=== PATIENT | male | born 1955 | race Caucasian/White ===

== ENCOUNTER 2018-02-16 11:27 | Observation (INO) ==
[2018-02-16] MEDS ORDERED: Aspirin 325 MG Tablet PO ONE (11:54)
[2018-02-16] MEDS ORDERED: MethylPREDNISolone Sod Succinate Inj 125 MG/2 ML Vial IV.PUSH ONE (11:54)
[2018-02-16] MEDS ORDERED: Sod Chloride 0.9% Inj 1,000 ML IV.SIG SCH (12:15)
--- NOTE | 2018-02-16 12:20 | XR ---
EXAM DATE: 02/16/2018 12:15 PM EDT AGE/SEX: 62 years / Male INDICATIONS: Chest pain, short of breath. CLINICAL DATA: This is the patient's initial encounter. Patient reports that signs and symptoms have been present for 2 months and indicates a pain score of 7/10. MEDICAL/SURGICAL HISTORY: Chronic obstructive pulmonary disease. heart attack Coronary artery stent. COMPARISON: [facility] – [place], CHEST SINGLE AP, 07/27/2016. . FINDINGS: A single AP view of the chest demonstrates the lungs to be symmetrically aerated without evidence of mass, infiltrate or effusion. The cardiomediastinal contours are unremarkable. Osseous structures a re intact. CONCLUSION: Negative examination. Electronically signed by: Yaya Nelson MD 02/16/2018 12:19 PM EDT
[2018-02-16] MEDS ORDERED: Morphine Inj 4 MG/ML Vial IV.PUSH ONE (12:22)
[2018-02-16 12:23] LABS: Baso % (Auto) 0.8 % (0.0-2.0); Eos # (Auto) 0.1 th/mm3 (0.0-0.4); Eos % (Auto) 1.9 % (0.0-4.0); Hematocrit 31.5 % (39.0-51.0); Hemoglobin 10.1 gm/dL (13.0-17.0); Lymph # (Auto) 0.8 th/mm3 (1.0-4.8); Lymph % (Auto) 15.4 % (9.0-44.0); Mean Corpuscular HGB Conc 32.2 % (32.0-36.0); Mean Corpuscular Hemoglobin 26.5 pg (27.0-34.0); Mean Corpuscular Volume 82.3 fL (80.0-100.0); Mono # (Auto) 0.9 th/mm3 (0.0-0.9); Mono % (Auto) 16.2 % (0.0-8.0); Neut # (Auto) 3.6 th/mm3 (1.8-7.7); Neut % (Auto) 65.7 % (16.0-70.0); Platelet Count 267 th/mm3 (150-450); Red Blood Count 3.82 mil/mm3 (4.50-5.90); Red Cell Distribution Width 19.3 % (11.6-17.2); White Blood Count 5.5 th/mm3 (4.0-11.0)
[2018-02-16 12:33] LABS: Activated Partial Thrombo Time 24.2 sec (24.3-30.1); Prothrombin Time 10.6 sec (9.8-11.6)
--- NOTE | 2018-02-16 12:44 | ED ---
HPI General Chief Complaint: Shortness of Breath/Dyspnea Stated Complaint: SOB Time Seen by Provider: 02/16/18 11:32 Source: patient, EMS and RN notes reviewed Mode of arrival: EMS Limitations: no limitations History of Present Illness Patient is a 62-year-old male that presents for the evaluation of shortness of breath, nausea, and vomiting. The patient had a difficult time recalling when exactly the shortness of breath began and states that it has been an ongoing problem. The patient states that the nausea and vomiting began last week and he has been unable to keep any food or liquid down. The patient reports abdominal pain that he rates the pain a 9/10 on a pain scale. The patient also states that he has a chronic history of pain in his penis upon urination that he rates the pain a 9/10 on a pain scale. He denies any blood in the urine. The patient states that he is currently homeless and has not been able to take any of his medications for about 2-3 months. The patient states that he does have some mild chest pain which has been consistent since his myocardial infarction and stent placement 2 months ago. The patient reports no diarrhea or constipation. He does report some dizziness and headache. Related Data Home Medications Medication Instructions Recorded Confirmed Unable to Obtain Home Meds 02/16/18 02/16/18 Allergies Allergy/AdvReac Type Severity Reaction Status Date / Time penicillin G Allergy Unknown Unverified 01/11/17 13:14 Review of Systems ROS: all other systems reviewed are negative [facility] Medical History Medical History COPD (chronic obstructive pulmonary disease) (Acute) Recent heart attack (Acute) Surgical History Surgical History Stented coronary artery (Acute) Social History Social History Second Hand Smoke Exposure: Yes Smoking Status: Current every day smoker Tobacco Type: Cigarettes How Often Do You Have a Drink Containing Alcohol: Never Recent Travel in [facility] within the Last 8 Weeks: No Recent Out of Country Travel within the Last 8 Weeks: No Immunization History Tetanus Immunization: <5 Years Exam Narrative Exam Narrative: GENERAL: Well appearing. SKIN: Focused skin assessment warm/dry. multiple bruises on arms and legs, most of them appear old. HEAD: Atraumatic. Normocephalic. EYES: Pupils equal and round. No scleral icterus. No injection or drainage. ENT: No nasal bleeding or discharge. Mucous membranes pink and moist. Tongue is midline. No uvula deviation. NECK: Trachea midline. No JVD. CARDIOVASCULAR: Regular rate and rhythm. No murmur appreciated. RESPIRATORY: No accessory muscle use. Clear to auscultation. Breath sounds equal bilaterally. GASTROINTESTINAL: Abdomen soft, non-tender, nondistended. Hepatic and splenic margins not palpable. MUSCULOSKELETAL: No obvious deformities. No clubbing. No cyanosis. No edema. Full range of motion of the upper and lower extremities bilaterally. 2+ pulses bilaterally. NEUROLOGICAL: Awake and alert. No obvious cranial nerve deficits. Motor grossly within normal limits. Normal speech. PSYCHIATRIC: Appropriate mood and affect; insight and judgment normal. Course Initial Documented Vital Signs Temperature 98.8 F 02/16/18 11:32 Pulse Rate 79 02/16/18 11:32 Respiratory Rate 17 02/16/18 11:32 Blood Pressure 147/71 H 02/16/18 11:32 Pulse Oximetry 98 02/16/18 11:32 Last Documented Vital Signs Temperature 98.8 F 02/16/18 11:32 Pulse Rate 70 02/16/18 12:31 Respiratory Rate 20 02/16/18 12:31 Blood Pressure 147/71 H 02/16/18 11:32 Pulse Oximetry 98 02/16/18 11:32 Medical Decision Making NAE Attestation NAE supervised visit: Yes Attestation: I, Dr. Uribe, have reviewed the advance practice practitioner's documentation and am in agreement, met with the patient face to face, made the diagnosis, and the medical decision making was done by me. *My assessment and Findings: Patient seen and examined by me in addition to Abran Berman PA-C, this is a 62-year-old homeless male who presents emergency department multiple complaints chief of which was chest pain. He has a recent history of stenting, he is not taking any of his post stenting medications. No definitive cause of his pain is yet been identified. Given the recent stenting in his chest pain I think is reasonable to hold him overnight for evaluation the chest pain center. I do get a suspicion of secondary gains in this patient. MDM Narrative Medical decision making narrative: 62-year-old male the presents to the ED for presents to the ED for evaluation of shortness of breath and other multiple complaints. Labs and imaging were ordered. Patient was given IV medications. Labs and imaging showed no sign of acute disease alert and what appears to be COPD findings on the chest x-ray. Patient still on some discomfort especially on the chest and abdomen. The abdomen appears to be chronic. Patient does however have a history of having a stent to his heart and takes no medication since having the stent placed. My attending Dr. Uribe himself evaluated the patient and recommends admission to chest pain center to rule out any sign of cardiac disease. Patient understands that regards to the pain on the arms and legs we might not be able to diagnose and patient will have to follow-up with her primary care doctor outpatient. He agrees and understands this plan. He understands that we are working him up for angina and cardiac disease. She agrees and understands this plan. He agrees with admission. Patient was admitted to chest pain center by me. Medical Screen Exam Complete: Yes Emergency Medical Condition: Yes Differential Diagnosis Differential Diagnosis: COPD exacerbation versus ACS versus chest pain versus typical chest pain versus pancreatitis versus nausea and vomiting versus homelessness Medical Records Medical records reviewed: Yes I reviewed the patient's medical records. Lab Data Lab results reviewed: Yes I reviewed the patient's lab results. Lab results narrative: troponin negative, CKMB negative Result diagrams: 02/16/18 12:05 02/16/18 12:05 Lab Results 02/16/18 02/16/18 02/16/18 Range/Units 12:05 12:05 12:05 WBC 5.5 (4.0-11.0) th/mm3 RBC 3.82 L (4.50-5.90) mil/mm3 Hgb 10.1 L (13.0-17.0) gm/dL Hct 31.5 L (39.0-51.0) % MCV 82.3 (80.0-100.0) fL MCH 26.5 L (27.0-34.0) pg MCHC 32.2 (32.0-36.0) % RDW 19.3 H (11.6-17.2) % Plt Count 267 (150-450) th/mm3 MPV 7.0 (7.0-11.0) fL Neut % (Auto) 65.7 (16.0-70.0) % Lymph % (Auto) 15.4 (9.0-44.0) % [place] % (Auto) 16.2 H (0.0-8.0) % Eos % (Auto) 1.9 (0.0-4.0) % Baso % (Auto) 0.8 (0.0-2.0) % Neut # (Auto) 3.6 (1.8-7.7) th/mm3 Lymph # (Auto) 0.8 L (1.0-4.8) th/mm3 [place] # (Auto) 0.9 (0.0-0.9) th/mm3 Eos # (Auto) 0.1 (0.0-0.4) th/mm3 Baso # (Auto) 0.0 (0.0-0.2) th/mm3 WBC Differential . Differential Comment Auto diff final PT 10.6 (9.8-11.6) sec INR 1.0 Ratio APTT 24.2 L (24.3-30.1) sec Sodium 138 (136-145) meq/L Potassium 3.8 (3.5-5.1) meq/L Chloride 102 (98-107) meq/L Carbon Dioxide 27.0 (21.0-32.0) meq/L Anion Gap 9 (5-15) meq/L BUN 10 (7-18) mg/dL Creatinine 0.62 (0.60-1.30) mg/dL Estimated GFR Greater than 89 (>89) mL/min Random Glucose 88 (74-106) mg/dL Calcium 8.6 (8.5-10.1) mg/dL Total Bilirubin (0.2-1.0) mg/dL Direct Bilirubin (0.0-0.2) mg/dL Indirect Bilirubin (0.0-0.8) mg/dL AST (15-37) U/L ALT (12-78) U/L Alkaline Phosphatase (45-117) U/L Total Creatine Kinase 28 L (39-308) U/L Troponin I Less than 0.02 L (0.02-0.05) ng/mL Total Protein (6.4-8.2) g/dL Albumin (3.4-5.0) g/dL Lipase (73-393) U/L 02/16/18 Range/Units 12:05 WBC (4.0-11.0) th/mm3 RBC (4.50-5.90) mil/mm3 Hgb (13.0-17.0) gm/dL Hct (39.0-51.0) % MCV (80.0-100.0) fL MCH (27.0-34.0) pg MCHC (32.0-36.0) % RDW (11.6-17.2) % Plt Count (150-450) th/mm3 MPV (7.0-11.0) fL Neut % (Auto) (16.0-70.0) % Lymph % (Auto) (9.0-44.0) % [place] % (Auto) (0.0-8.0) % Eos % (Auto) (0.0-4.0) % Baso % (Auto) (0.0-2.0) % Neut # (Auto) (1.8-7.7) th/mm3 Lymph # (Auto) (1.0-4.8) th/mm3 [place] # (Auto) (0.0-0.9) th/mm3 Eos # (Auto) (0.0-0.4) th/mm3 Baso # (Auto) (0.0-0.2) th/mm3 WBC Differential Differential Comment PT (9.8-11.6) sec INR Ratio APTT (24.3-30.1) sec Sodium (136-145) meq/L Potassium (3.5-5.1) meq/L Chloride (98-107) meq/L Carbon Dioxide (21.0-32.0) meq/L Anion Gap (5-15) meq/L BUN (7-18) mg/dL Creatinine (0.60-1.30) mg/dL Estimated GFR (>89) mL/min Random Glucose (74-106) mg/dL Calcium (8.5-10.1) mg/dL Total Bilirubin 0.9 (0.2-1.0) mg/dL Direct Bilirubin 0.2 (0.0-0.2) mg/dL Indirect Bilirubin 0.7 (0.0-0.8) mg/dL AST 12 L (15-37) U/L ALT 13 (12-78) U/L Alkaline Phosphatase 88 (45-117) U/L Total Creatine Kinase (39-308) U/L Troponin I (0.02-0.05) ng/mL Total Protein 6.3 L (6.4-8.2) g/dL Albumin 2.6 L (3.4-5.0) g/dL Lipase 90 (73-393) U/L Imaging Data Attestation: I personally reviewed and interpreted this imaging study as follows : Radiologist's impression: Chest X-Ray 02/16/18 11:54 CONCLUSION: Negative examination. ECG Data EKG Prior to Arrival: No Attestation: I personally reviewed and interpreted this ECG as follows: Interpretation: EKG shows sinus rhythm with no sign of acute ischemia or arrhythmia. Ventricular rate of 72, MN interval of 158 ms. Read by me and attending. Discharge Plan Discharge Disposition Patient Disposition: 30 Still Patient Discharge Details Diagnosis: Chest pain Physicians Team ED Provider: Yaya Uribe ED Midlevel Provider: Abran Berman Primary Care Provider: Primary Care Mary Salcedo Rxs /Orders / Referrals /Forms Prescriptions: No Action Unable to Obtain Home Meds RF: 0 Discharge Interventions Interventions: Vital Signs Last Done: 02/16/18 11:40 Status ED Status: With Doctor
[2018-02-16 13:01] LABS: Anion Gap 9 meq/L (5-15); Blood Urea Nitrogen 10 mg/dL (7-18); Calcium 8.6 mg/dL (8.5-10.1); Chloride 102 meq/L (98-107); Glomerular Filtration Rate Greater Than 89 mL/min (>89); Glucose,Random 88 mg/dL (74-106); Potassium 3.8 meq/L (3.5-5.1); Sodium 138 meq/L (136-145)
[2018-02-16 13:07] LABS: Creatine Kinase 28 U/L (39-308)
[2018-02-16 13:38] LABS: Albumin 2.6 g/dL (3.4-5.0)
[2018-02-16 13:40] LABS: Total Protein 6.3 g/dL (6.4-8.2)
[2018-02-16 16:23] LABS: Creatine Kinase 30 U/L (39-308)
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
[2018-02-16 17:12] LABS: Bilirubin,Urine Negative (Negative); Clarity,Urine Clear (Clear); Color,Urine Yellow (Yellw/Straw); Glucose,Urine (UA) Negative (Negative); Leukocyte Esterase,Urine Negative (Negative); Mucus,Urine Few /lpf (Occasional); Nitrite,Urine Negative (Negative); Specific Gravity,Urine 1.009 (1.002-1.035)
[2018-02-16 19:54] VITALS: RESP 16
[2018-02-16 20:01] LABS: Creatine Kinase 30 U/L (39-308)
[2018-02-17 04:10] VITALS: TEMP 97.8; O2SAT 96
[2018-02-17 08:05] VITALS: BP 152/67
[2018-02-17 08:13] VITALS: PULSE 72
[2018-02-17] MEDS ORDERED: Aspirin 325 MG Tablet PO SCH (09:00)
[2018-02-17] MEDS ORDERED: Regadenoson Inj 0.4 MG/5 ML Syringe IV.PUSH ONE (12:24)
--- NOTE | 2018-02-17 14:45 | NM ---
EXAM DATE: 02/17/2018 1:54 PM EDT AGE/SEX: 62 years / Male INDICATIONS:Angina. Coronary artery disease Chest pain. CLINICAL DATA: This is the patient's initial encounter. Patient reports that signs and symptoms have been present for 2 days and indicates a pain score of 3/10. MEDICAL/SURGICAL HISTORY: Myocardial infarction. Hypertension. Coronary artery stent. COMPARISON: No prior exams available for comparison. DOSE: 8.2 mCi Tc 99m Myoview at rest 26.1 mCi [id number] at stress 0.4 mg Lexiscan STRESS SYMPTOMS: None noted. EJECTION FRACTION: 50 % TECHNIQUE: The patient underwent pharmacologic stress with infusion of prescribed dose. Continuous ECG tracing was monitored during stress. Gated SPECT imaging was performed after stress and conventi onal SPECT imaging was performed at rest. The examination was performed on a SPECT/CT scanner, both attenuation and non-corrected datasets were reviewed. FINDINGS: Best perfused myocardium is the anterior lateral wall. There is no redistribution to suggest ischemia . There is dilatation of ventricular cavity with ejection fraction of 50%. RISK CATEGORY: Low (<1% Annual Motality Rate) CONCLUSION: 1. Negative for stress-induced ischemia. Patient does have a depressed ejection fraction of 50%. Cor relation suggested. Electronically signed by: Doug Barros MD 02/17/2018 2:43 PM EDT
--- NOTE | 2018-02-18 10:26 | TR ---
Date Performed: 02/17/2018 Time Performed: 12:26:52 DOCTOR: Herve Bradley DRUG LIST: CLINICAL HISTORY: ANGINA REASON FOR TEST: Angina REASON FOR ENDING: OBSERVATION: CONCLUSION: Lexiscan stress test was performed under standard four minute protocol. Radionuclide was injected one minute prior to ending the test. No electrocardiographic abormalities were present to suggest ischemia. Nuclear imaging and interpretation are pending. COMMENTS:
--- NOTE | 2018-02-18 10:36 | ECG ---
Date Performed: 02/16/2018 Time Performed: 18:13:06 PTAGE: 62 years EKG: Sinus rhythm NORMAL ECG PREVIOUS TRACING : 02/16/2018 15.23 DOCTOR: Herve Bradley Interpretating Date/Time 02/18/2018 10:34:19
--- NOTE | 2018-02-18 10:36 | ECG ---
Date Performed: 02/16/2018 Time Performed: 15:23:46 PTAGE: 62 years EKG: Sinus rhythm NORMAL ECG PREVIOUS TRACING : 02/16/2018 12.02 DOCTOR: Herve Bradley Interpretating Date/Time 02/18/2018 10:34:35
--- NOTE | 2018-02-18 10:38 | ECG ---
Date Performed: 02/16/2018 Time Performed: 12:02:10 PTAGE: 62 years EKG: Sinus rhythm NORMAL ECG PREVIOUS TRACING : 07/27/2016 05.46 DOCTOR: Herve Bradley Interpretating Date/Time 02/18/2018 10:35:22
== END 2018-02-17 16:53 | disposition home or self-care (01) ==
LOC: NEPC 11:27 → NEDA 11:27 → NEPGCP 16:10
PROVIDERS: ADMIT Internal Medicine Cardiovascular Disease; ATTEND Internal Medicine Cardiovascular Disease
DX: R42 Dizziness and giddiness; F17.210 Nicotine dependence, cigarettes, uncomplicated; R51 Headache; Z91.14 Patient's other noncompliance with medication regimen; Z82.49 Family history of ischemic heart disease and other diseases of the circulatory system; R06.02 Shortness of breath; Z95.5 Presence of coronary angioplasty implant and graft; J44.9 Chronic obstructive pulmonary disease, unspecified; R11.2 Nausea with vomiting, unspecified; Z59.0 Homelessness; I25.2 Old myocardial infarction; R07.9 Chest pain, unspecified; R10.9 Unspecified abdominal pain; I25.10 Atherosclerotic heart disease of native coronary artery without angina pectoris

== ENCOUNTER 2018-02-19 03:21 | Inpatient (IN) ==
--- NOTE | 2018-02-19 03:35 | ED ---
HPI General Chief Complaint: Shortness of Breath/Dyspnea Stated Complaint: SOB Time Seen by Provider: 02/19/18 03:32 Source: patient Mode of arrival: ambulatory Limitations: no limitations History of Present Illness complaints of shortness of breath, times the last 2 days. Patient has a past medical history significant for COPD. Patient continues to be an active smoker. 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 Today the patient is mostly complaining of his wheezing and shortness of breath... He denies any productive cough... Apparently the patient had a stent done in [facility] back at the beginning of 2018. Patient also has a history for recent heart attack status post coronary artery stented, active smoker, Related Data Previous Rx's Medication Instructions Recorded guaifenesin [Mucinex] 600 mg PO BID tab 02/22/18 budesonide-formoterol [Symbicort] 2 puff INH BID #1 g 02/28/18 doxycycline hyclate 100 mg PO Q12HR #30 cap 02/28/18 ferrous sulfate [FeroSul] 325 mg PO BID@1200,1700 #60 tab 02/28/18 fluphenazine HCl 5 mg PO BID #60 tab 02/28/18 pantoprazole [Protonix] 40 mg PO BID #60 ea 02/28/18 prednisone 20 mg PO DAILY #60 tab 02/28/18 Allergies Allergy/AdvReac Type Severity Reaction Status Date / Time penicillin G Allergy Intermediate Rash Verified 02/19/18 03:40 Review of Systems ROS: all other systems reviewed are negative PMFSH History History Provided By: Patient Medical History Medical History Asthma (Acute) COPD (chronic obstructive pulmonary disease) (Acute) Recent heart attack (Acute) Surgical History Surgical History Stented coronary artery (Acute) Family History Family History Other No pertinent family history Social History Social History Substance History: Past History Second Hand Smoke Exposure: No Smoking Status: Former smoker Tobacco Type: Cigarettes Packs Per Day: 1 Cigarettes Per Day: 20.0 How Often Do You Have a Drink Containing Alcohol: Never Hx Recent Travel: Yes ([facility]) Exam Narrative Exam Narrative: GENERAL: Well-nourished, well-developed patient in no apparent distress. SKIN: Warm and dry. HEAD: Atraumatic. Normocephalic. EYES: Pupils equal and round. No scleral icterus. No injection or drainage. ENT: No nasal bleeding or discharge. Mucous membranes pink and moist. NECK: Trachea midline. No JVD. CARDIOVASCULAR: Regular rate and rhythm. no rubs or gallops RESPIRATORY: No accessory muscle use. Clear to auscultation. Breath sounds equal bilaterally. GASTROINTESTINAL: Abdomen soft, non-tender, nondistended. No rebound or guarding MUSCULOSKELETAL: Extremities without clubbing, cyanosis, or edema. No obvious deformities. NEUROLOGICAL: Awake and alert. No obvious cranial nerve deficits. Motor grossly within normal limits. Five out of 5 muscle strength in the arms and legs. Normal speech. PSYCHIATRIC: Appropriate mood and affect; insight and judgment normal. Course Initial Documented Vital Signs Temperature 99.1 F 02/19/18 03:30 Pulse Rate 109 H 02/19/18 03:30 Respiratory Rate 18 02/19/18 03:30 Blood Pressure 132/76 02/19/18 03:30 Pulse Oximetry 96 02/19/18 03:30 Last Documented Vital Signs Temperature 97.6 F 02/22/18 16:00 Pulse Rate 76 02/22/18 16:00 Respiratory Rate 17 02/22/18 16:00 Blood Pressure 139/69 02/22/18 16:00 Pulse Oximetry 97 02/22/18 16:00 Medical Decision Making [facility] Narrative Medical decision making narrative: CBC showed some mild anemia of 10.7/33, no leukocytosis, no evidence of any left shift, normal platelet count. Coagulation profile within normal limits Set of cardiac enzymes negative Normal kidney liver and pancreatic functions CT chest is negative for any pulmonary embolus, or pericardial effusion. However the patient's chest CT did show an ill-defined thickening seen in the distal esophagus associated with lymphadenopathy adjacent to the GE junction. patient will be admitted for further evaluation and care Medical Screen Exam Complete: Yes Emergency Medical Condition: Yes Differential Diagnosis Differential Diagnosis: COPD versus pneumonia versus PE versus STEMI Medical Records Medical records reviewed: Yes I reviewed the patient's medical records. Patient was seen on February 16, evaluated for COPD exacerbation and admitted for chest pain center. He was ruled out 3 negative enzymes... Patient also had a Lexiscan stress test which was negative for any evidence suggesting ischemia. Lab Data Result diagrams: 02/22/18 04:11 02/22/18 04:11 Lab Results 02/19/18 02/19/18 02/19/18 Range/Units 03:55 03:55 03:55 WBC 5.5 (4.0-11.0) th/mm3 RBC 4.00 L (4.50-5.90) mil/mm3 Hgb 10.7 L (13.0-17.0) gm/dL Hct 33.1 L (39.0-51.0) % MCV 82.8 (80.0-100.0) fL MCH 26.8 L (27.0-34.0) pg MCHC 32.3 (32.0-36.0) % RDW 19.6 H (11.6-17.2) % Plt Count 330 (150-450) th/mm3 MPV 7.0 (7.0-11.0) fL Neut % (Auto) 64.0 (16.0-70.0) % Lymph % (Auto) 18.5 (9.0-44.0) % Newton % (Auto) 14.1 H (0.0-8.0) % Eos % (Auto) 2.3 (0.0-4.0) % Baso % (Auto) 1.1 (0.0-2.0) % Neut # (Auto) 3.5 (1.8-7.7) th/mm3 Lymph # (Auto) 1.0 (1.0-4.8) th/mm3 Newton # (Auto) 0.8 (0.0-0.9) th/mm3 Eos # (Auto) 0.1 (0.0-0.4) th/mm3 Baso # (Auto) 0.1 (0.0-0.2) th/mm3 WBC Differential . Differential Comment Auto diff final Sodium 140 (136-145) meq/L Potassium 3.6 (3.5-5.1) meq/L Chloride 102 (98-107) meq/L Carbon Dioxide 27.4 (21.0-32.0) meq/L Anion Gap 11 (5-15) meq/L BUN 13 (7-18) mg/dL Creatinine 0.79 (0.60-1.30) mg/dL Estimated GFR Greater than 89 (>89) mL/min Random Glucose 93 (74-106) mg/dL Calcium 8.8 (8.5-10.1) mg/dL Total Bilirubin 0.5 (0.2-1.0) mg/dL AST 18 (15-37) U/L ALT 14 (12-78) U/L Alkaline Phosphatase 93 (45-117) U/L Troponin I Less than 0.02 L (0.02-0.05) ng/mL B-Natriuretic Peptide 33 (0-100) pg/mL Total Protein 7.1 D (6.4-8.2) g/dL Albumin 3.0 L (3.4-5.0) g/dL Tumor Marker AFP (0.5-8.0) ng/mL 02/20/18 02/20/18 02/21/18 Range/Units 04:30 04:30 06:40 WBC 3.9 L 4.6 (4.0-11.0) th/mm3 RBC 3.22 L 3.09 L (4.50-5.90) mil/mm3 Hgb 8.5 L D 8.3 L (13.0-17.0) gm/dL Hct 26.2 L 25.0 L (39.0-51.0) % MCV 81.4 80.9 (80.0-100.0) fL MCH 26.4 L 27.0 (27.0-34.0) pg MCHC 32.4 33.4 (32.0-36.0) % RDW 18.8 H 19.0 H (11.6-17.2) % Plt Count 293 301 (150-450) th/mm3 MPV 7.2 7.3 (7.0-11.0) fL Neut % (Auto) 63.3 61.4 (16.0-70.0) % Lymph % (Auto) 19.9 23.1 (9.0-44.0) % Newton % (Auto) 16.3 H 15.1 H (0.0-8.0) % Eos % (Auto) 0.1 0.1 (0.0-4.0) % Baso % (Auto) 0.4 0.3 (0.0-2.0) % Neut # (Auto) 2.5 2.8 (1.8-7.7) th/mm3 Lymph # (Auto) 0.8 L 1.1 (1.0-4.8) th/mm3 Newton # (Auto) 0.6 0.7 (0.0-0.9) th/mm3 Eos # (Auto) 0.0 0.0 (0.0-0.4) th/mm3 Baso # (Auto) 0.0 0.0 (0.0-0.2) th/mm3 WBC Differential . . Differential Comment Auto diff final Auto diff final Sodium 142 (136-145) meq/L Potassium 3.3 L (3.5-5.1) meq/L Chloride 108 H (98-107) meq/L Carbon Dioxide 25.1 (21.0-32.0) meq/L Anion Gap 9 (5-15) meq/L BUN 8 (7-18) mg/dL Creatinine 0.59 L (0.60-1.30) mg/dL Estimated GFR Greater than 89 (>89) mL/min Random Glucose 92 (74-106) mg/dL Calcium 8.5 (8.5-10.1) mg/dL Total Bilirubin 0.5 (0.2-1.0) mg/dL AST 13 L (15-37) U/L ALT 12 (12-78) U/L Alkaline Phosphatase 73 (45-117) U/L Troponin I (0.02-0.05) ng/mL B-Natriuretic Peptide (0-100) pg/mL Total Protein 5.8 L D (6.4-8.2) g/dL Albumin 2.6 L (3.4-5.0) g/dL Tumor Marker AFP (0.5-8.0) ng/mL 02/21/18 02/22/18 02/22/18 Range/Units 06:40 04:11 04:11 WBC 4.2 (4.0-11.0) th/mm3 RBC 3.13 L (4.50-5.90) mil/mm3 Hgb 8.4 L (13.0-17.0) gm/dL Hct 25.3 L (39.0-51.0) % MCV 80.9 (80.0-100.0) fL MCH 26.9 L (27.0-34.0) pg MCHC 33.3 (32.0-36.0) % RDW 19.0 H (11.6-17.2) % Plt Count 319 (150-450) th/mm3 MPV 7.4 (7.0-11.0) fL Neut % (Auto) 83.6 H (16.0-70.0) % Lymph % (Auto) 8.6 L (9.0-44.0) % Newton % (Auto) 7.6 (0.0-8.0) % Eos % (Auto) 0.1 (0.0-4.0) % Baso % (Auto) 0.1 (0.0-2.0) % Neut # (Auto) 3.5 (1.8-7.7) th/mm3 Lymph # (Auto) 0.4 L (1.0-4.8) th/mm3 Newton # (Auto) 0.3 (0.0-0.9) th/mm3 Eos # (Auto) 0.0 (0.0-0.4) th/mm3 Baso # (Auto) 0.0 (0.0-0.2) th/mm3 WBC Differential . Differential Comment Auto diff final Sodium 144 141 (136-145) meq/L Potassium 3.7 3.6 (3.5-5.1) meq/L Chloride 107 104 (98-107) meq/L Carbon Dioxide 26.9 25.6 (21.0-32.0) meq/L Anion Gap 10 11 (5-15) meq/L BUN 9 15 (7-18) mg/dL Creatinine 0.75 0.76 (0.60-1.30) mg/dL Estimated GFR Greater than 89 Greater than 89 (>89) mL/min Random Glucose 92 119 H (74-106) mg/dL Calcium 8.1 L 8.6 (8.5-10.1) mg/dL Total Bilirubin 0.4 0.5 (0.2-1.0) mg/dL AST 9 L 9 L (15-37) U/L ALT 12 13 (12-78) U/L Alkaline Phosphatase 71 76 (45-117) U/L Troponin I (0.02-0.05) ng/mL B-Natriuretic Peptide (0-100) pg/mL Total Protein 5.4 L 5.9 L (6.4-8.2) g/dL Albumin 2.4 L 2.7 L (3.4-5.0) g/dL Tumor Marker AFP (0.5-8.0) ng/mL 02/22/18 Range/Units 10:35 WBC (4.0-11.0) th/mm3 RBC (4.50-5.90) mil/mm3 Hgb (13.0-17.0) gm/dL Hct (39.0-51.0) % MCV (80.0-100.0) fL MCH (27.0-34.0) pg MCHC (32.0-36.0) % RDW (11.6-17.2) % Plt Count (150-450) th/mm3 MPV (7.0-11.0) fL Neut % (Auto) (16.0-70.0) % Lymph % (Auto) (9.0-44.0) % Newton % (Auto) (0.0-8.0) % Eos % (Auto) (0.0-4.0) % Baso % (Auto) (0.0-2.0) % Neut # (Auto) (1.8-7.7) th/mm3 Lymph # (Auto) (1.0-4.8) th/mm3 Newton # (Auto) (0.0-0.9) th/mm3 Eos # (Auto) (0.0-0.4) th/mm3 Baso # (Auto) (0.0-0.2) th/mm3 WBC Differential Differential Comment Sodium (136-145) meq/L Potassium (3.5-5.1) meq/L Chloride (98-107) meq/L Carbon Dioxide (21.0-32.0) meq/L Anion Gap (5-15) meq/L BUN (7-18) mg/dL Creatinine (0.60-1.30) mg/dL Estimated GFR (>89) mL/min Random Glucose (74-106) mg/dL Calcium (8.5-10.1) mg/dL Total Bilirubin (0.2-1.0) mg/dL AST (15-37) U/L ALT (12-78) U/L Alkaline Phosphatase (45-117) U/L Troponin I (0.02-0.05) ng/mL B-Natriuretic Peptide (0-100) pg/mL Total Protein (6.4-8.2) g/dL Albumin (3.4-5.0) g/dL Tumor Marker AFP 5.3 (0.5-8.0) ng/mL Imaging Data Radiologist's impression: Chest CTA 02/19/18 03:41 CONCLUSION: 1. No pulmonary embolus. 2. 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 3. Moderate emphysema. No pulmonary mass or infiltrate. Abdomen/Pelvis CT 02/20/18 00:00 CONCLUSION: 1. 1.6 cm mass anterior to the GE junction suspicious for an enlarged lymph node. 2. Possible concentric thickening of the GE junction; recommend direct characterization with endoscopy to evaluate for possible mass. 3. 4 mm low-density lesion in the dome of the liver is too small to further characterize. Discharge Plan Discharge Disposition Patient Disposition: 67 Disc To [facility] Discharge Condition Condition: Fair Discharge Order Discharge Orders: Discharge Order (Routine); Ordered 02/22/18 Ordered By: Rene Ernandez Discharge Details Anticipated Discharge Date: 02/22/18 Discharge Comment: per Psychiatri specialist. Diagnosis: COPD exacerbation, Esophageal mass Physicians Team ED Provider: Ovidio Zepeda Primary Care Provider: Primary Care Mary Salcdeo Attending Provider: Rene Ernandez Other Providers: Ernesto Gaona ; Carmine Cao Discharge Interventions Interventions: ED Discharge Assessment Last Done: 02/19/18 08:38 Status ED Status: Left Department Discharge Information Discharge Date/Time: 02/19/18 08:30
[2018-02-19] MEDS ORDERED: MethylPREDNISolone Sod Succinate Inj 125 MG/2 ML Vial IV.PUSH ONE (03:40)
[2018-02-19 04:01] LABS: Baso # (Auto) 0.1 th/mm3 (0.0-0.2); Baso % (Auto) 1.1 % (0.0-2.0); Eos # (Auto) 0.1 th/mm3 (0.0-0.4); Eos % (Auto) 2.3 % (0.0-4.0); Hematocrit 33.1 % (39.0-51.0); Hemoglobin 10.7 gm/dL (13.0-17.0); Lymph % (Auto) 18.5 % (9.0-44.0); Mean Corpuscular HGB Conc 32.3 % (32.0-36.0); Mean Corpuscular Hemoglobin 26.8 pg (27.0-34.0); Mean Corpuscular Volume 82.8 fL (80.0-100.0); Mono # (Auto) 0.8 th/mm3 (0.0-0.9); Mono % (Auto) 14.1 % (0.0-8.0); Neut # (Auto) 3.5 th/mm3 (1.8-7.7); Platelet Count 330 th/mm3 (150-450); Red Cell Distribution Width 19.6 % (11.6-17.2); White Blood Count 5.5 th/mm3 (4.0-11.0)
--- NOTE | 2018-02-19 04:24 | CT ---
EXAM DATE: 02/19/2018 4:18 AM EDT AGE/SEX: 62 years / Male INDICATIONS: Shortness of breath past 2 days. CLINICAL DATA: This is the patient's initial encounter. Patient reports that signs and symptoms have been present for 2 days and indicates a pain score of 0/10. MEDICAL/SURGICAL HISTORY: Cardiovascular disease. Chronic obstructive pulmonary disease. Coronary artery stent. RADIATION DOSE: 6.91 CTDI (mGy) COMPARISON: No prior exams available for comparison. TECHNIQUE: Volumetric scanning was performed using a multi-row detector CT scanner during bolus infu anshul of 60 ml Omnipaque 350 (iohexol) nonionic water-soluble contrast as a single exam dose. The natasha a was post processed with a variety of visualization algorithms including full volume maximum intensi ty projection and sliding thin slab reformation. Using automated exposure control and adjustment of the mA and/or kV according to patient size, radiation dose was kept as low as reasonably achievable t o obtain optimal diagnostic quality images. DICOM format image data is available electronically for review and comparison. FINDINGS: There is no pulmonary embolus. Moderate severity emphysema. No infiltrate, effusion or pneumothorax. Mild apical scarring. Ill-defined thickening seen of the distal esophagus and there is lymphadenopathy adjacent to the GE j unction. There is no mediastinal or hilar lymphadenopathy. CONCLUSION: 1. No pulmonary embolus. 2. 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 3. Moderate emphysema. No pulmonary mass or infiltrate. Electronically signed by: Simba Thurston MD 02/19/2018 4:23 AM EDT
[2018-02-19 04:35] LABS: Alanine Aminotransferase 14 U/L (12-78); Anion Gap 11 meq/L (5-15); Aspartate Aminotransferase 18 U/L (15-37); Blood Urea Nitrogen 13 mg/dL (7-18); Calcium 8.8 mg/dL (8.5-10.1); Carbon Dioxide 27.4 meq/L (21.0-32.0); Chloride 102 meq/L (98-107); Glomerular Filtration Rate Greater Than 89 mL/min (>89); Glucose,Random 93 mg/dL (74-106); Potassium 3.6 meq/L (3.5-5.1); Sodium 140 meq/L (136-145)
[2018-02-19 04:36] LABS: Alkaline Phosphatase 93 U/L (45-117); Total Protein 7.1 g/dL (6.4-8.2)
[2018-02-19] MEDS ORDERED: Bisacodyl 10 MG Supp RECTAL PRN (06:12)
[2018-02-19] MEDS ORDERED: Acetaminophen 325 MG Tablet PO PRN (06:12)
[2018-02-19] MEDS: Sod Chloride 0.9% Inj 1,000 ML IV.CONT SCH ×2 (06:48→18:48)
--- NOTE | 2018-02-19 07:47 | P.HPIM ---
History of Present Illness Service: [facility] Primary Care Physician: No Primary Care Physician Chief Complaint: SOB History of Present Illness: This is a 62-year-old male CM with hx of CAD s/p stent 2 months ago on Palvix, who presented to the ED for shortness of breath x2 days with Hx of COPD. Patient reports that his SOB occurs with minimal exertion, incr. white sputum x7 days with cough. Patient is a poor historian, he is homeless and reports that be cannot afford inhalers for COPD. Patient also reports hx of anemia a few mths ago req. blood transfusion, at the time he was having bright red blood when he wiped after BM's and had an EGD/Colonoscopy that showed gastric polys that according to him were concerning for malignancy. He does not know what state this was done at and he has been in [facility] for 1 wk. he has been homeless for 39yrs, originally from [place] but when he returned home from the [place] in the 's his parents kicked him out and he has been homeless since. He has traveled 47 states in the last 39yrs and stays in different cities for months at a time. Denies CP, weight loss, fever, and chills. Patient is single, has 1 daughter that he is not in contact with, father is and mother is in a SNF in [place], he has no contact with any family members. Of note, patient was admitted for CP rule out on 02/16 with neg nuclear stress test. Also, on and 06/2016 he was seen in the ED for COPD exacerbations per EMR. Patient does not have a PCP. - Diagnosis (1) COPD exacerbation (2) CAD (coronary artery disease) (3) History of heart artery stent (4) Tobacco abuse Review of Systems All other systems reviewed negative except as stated in HPI PMFSH - History History Provided By: Patient - Medical History Medical History: Medical History (Last Reviewed 02/19/18 @ 09:03 by Grisel Guerra MD) Asthma COPD (chronic obstructive pulmonary disease) Recent heart attack - Surgical History Surgical History: Surgical History (Last Reviewed 02/19/18 @ 09:03 by Grisel Guerra MD) Stented coronary artery - Family History Family History: Family History (Last Updated 02/19/18 @ 09:03 by Grisel Guerra MD) Other No pertinent family history - Social History I have reviewed the patient's Social History: Yes - Tobacco History Second Hand Smoke Exposure: Yes Tobacco Use In Past 30 Days: Yes Smoking Status: Current every day smoker Tobacco Type: Cigarettes Packs Per Day: 1 - Alcohol History How Often Do You Have a Drink Containing Alcohol: Never - Substance Use History Substance History: No History of Abuse - Travel History History of Recent Travel: [facility] Recent Travel in the [place] Within the Last 8 Weeks: Yes Recent Travel Out of the Country Within the Last 8 Weeks: No - Immunization History Tetanus Immunization: Unsure Hx Influenza Vaccine This Season: No Medications and Allergies Active Medications: Active Medications Acetaminophen (Tylenol) 650 mg PO Q4H PRN PRN Reason: Temp > 100.4 Al Hydroxide/Mg Hydroxide (Milk Of Magnesia Liq) 30 ml PO Q12H PRN PRN Reason: Mild Constipation Albuterol (Duoneb Neb (Prn)) 1 ampul NEB Q2HR NEB PRN PRN Reason: SOB/WHEEZING Bisacodyl (Dulcolax Supp) 10 mg RECTAL DAILY PRN PRN Reason: SEVERE CONSITIPATION Budesonide/Formoterol Fumarate (Symbicort 160/4.5 Mcg Inh) 2 puff INH BID YANN Guaifenesin (Mucinex Er) 600 mg PO BID YANN Sodium Chloride (Ns Inj) 1,000 mls @ 100 mls/hr IV.CONT .Q10H [facility] Last Admin: 02/19/18 06:48 Dose: 100 mls/hr Lactulose (Lactulose Liq) 30 ml PO DAILY PRN PRN Reason: SEVERE CONSITIPATION Morphine Sulfate (Morphine Inj) 2 mg IV.PUSH Q4H PRN PRN Reason: PAIN 6-10 Ondansetron HCl (Zofran Inj) 4 mg IV.PUSH Q6H PRN PRN Reason: NAUSEA OR VOMITING Senna/Docusate Sodium (Eugenie-Colace) 1 tab PO BID YANN Sennosides (Senokot) 17.2 mg PO Q12H PRN PRN Reason: Moderate Constipation Allergies Allergy/AdvReac Type Severity Reaction Status Date / Time penicillin G Allergy Intermediate Rash Verified 02/19/18 03:40 Home Medications Medication Instructions Recorded Confirmed Type No Known Home Medications 02/19/18 02/19/18 History Exam Vital signs: Vital Signs 02/19/18 03:30 02/19/18 03:45 02/19/18 03:55 Temperature 99.1 F Pulse Rate 109 H 92 H Respiratory Rate 18 Blood Pressure 132/76 Pulse Oximetry 96 97 02/19/18 06:00 02/19/18 07:32 Temperature Pulse Rate 97 H 73 Respiratory Rate 22 21 Blood Pressure 132/67 140/84 Pulse Oximetry 97 96 Intake & Output 02/18/18 02/19/18 02/19/18 18:59 06:59 18:59 Weight 58.967 kg Narrative: GENERAL: thin, male, in NAD, lying comfortably in bed, AAOx3 SKIN: Warm and dry. Ecchymosis noted on BL arms. HEENT: Normocephalic. No scleral icterus. No injection or drainage. MOM, poor dentition. NECK: Supple, trachea midline. No JVD or lymphadenopathy. CARDIOVASCULAR: Regular rate and rhythm without murmurs, gallops, or rubs. RESPIRATORY: Minimal expiratory wheezing on exam, no accessory muscle use. GASTROINTESTINAL: Abdomen soft, non-tender, nondistended. MUSCULOSKELETAL: No cyanosis, or edema. BACK: Nontender without obvious deformity. No CVA tenderness. Results - Labs CBC & Chem 7: 02/19/18 03:55 02/19/18 03:55 Labs: Short CBC 02/19/18 Range/Units 03:55 WBC 5.5 (4.0-11.0) th/mm3 Hgb 10.7 L (13.0-17.0) gm/dL Hct 33.1 L (39.0-51.0) % Plt Count 330 (150-450) th/mm3 BMP 02/19/18 03:55 Sodium 140 Potassium 3.6 Chloride 102 Carbon Dioxide 27.4 BUN 13 Creatinine 0.79 Calcium 8.8 Cardiac Enzymes 02/19/18 Range/Units 03:55 Troponin I Less than 0.02 L (0.02-0.05) ng/mL Liver Function 02/19/18 Range/Units 03:55 Total Bilirubin 0.5 (0.2-1.0) mg/dL AST 18 (15-37) U/L ALT 14 (12-78) U/L Alkaline Phosphatase 93 (45-117) U/L Albumin 3.0 L (3.4-5.0) g/dL - Imaging Impressions Chest CTA 02/19/18 03:41 CONCLUSION: 1. No pulmonary embolus. 2. 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 3. Moderate emphysema. No pulmonary mass or infiltrate. Caprini VTE Risk Assessment Caprini VTE Risk Assessment: No/Low Risk (score <= 1) Caprini Risk Assessment Model: Point Value = 1 Point Value = 2 Point Value = 3 Point Value = 5 Age 41-60 Minor surgery BMI > 25 kg/m2 Swollen legs Varicose veins or History of unexplained or recurrent spontaneous Oral contraceptives or hormone replacement Sepsis (< 1 month) Serious lung disease, including pneumonia (< 1 month) Abnormal pulmonary function Acute myocardial infarction Congestive heart failure (< 1 month) History of inflammatory bowel disease Medical patient at bed rest Age 61-74 Arthroscopic surgery Major open surgery (> 45 min) Laparoscopic surgery (> 45 min) Malignancy Confined to bed (> 72 hours) Immobilizing plaster cast Central venous access Age >= 75 History of VTE Family history of VTE Factor V Leiden Prothrombin [id number] Lupus anticoagulant Anticardiolipin antibodies Elevated serum homocysteine Heparin-induced thrombocytopenia Other congenital or acquired thrombophilia Stroke (< 1 month) Elective arthroplasty Hip, pelvis, or leg fracture Acute spinal cord injury (< 1 month) Prophylaxis Regimen: Total Risk Factor Score Risk Level Prophylaxis Regimen 0-1 Low Early ambulation 2 Moderate Order ONE of the following: *Sequential Compression Device (SCD) *Heparin 5000 units SQ BID 3-4 Higher Order ONE of the following medications: *Heparin 5000 units SQ TID *Enoxaparin/Lovenox 40 mg SQ daily (WT < 150 kg, CrCl > 30 mL/min) *Enoxaparin/Lovenox 30 mg SQ daily (WT < 150 kg, CrCl > 10-29 mL/min) *Enoxaparin/Lovenox 30 mg SQ BID (WT < 150 kg, CrCl > 30 mL/min) AND/OR *Sequential Compression Device (SCD) 5 or more Highest Order ONE of the following medications: *Heparin 5000 units SQ TID (Preferred with Epidurals) *Enoxaparin/Lovenox 40 mg SQ daily (WT < 150 kg, CrCl > 30 mL/min) *Enoxaparin/Lovenox 30 mg SQ daily (WT < 150 kg, CrCl > 10-29 mL/min) *Enoxaparin/Lovenox 30 mg SQ BID (WT < 150 kg, CrCl > 30 mL/min) AND *Sequential Compression Device (SCD) Assessment and Plan - Assessment (1) COPD exacerbation Code(s): J44.1 - Chronic obstructive pulmonary disease with (acute) exacerbation Status: Acute (2) CAD (coronary artery disease) Code(s): I25.10 - Atherosclerotic heart disease of [place] coronary artery without angina pectoris Status: Chronic (3) History of heart artery stent Code(s): Z95.5 - Presence of coronary angioplasty implant and graft Status: Chronic (4) Tobacco abuse Code(s): Z72.0 - Tobacco use Status: Acute - Plan This is a 62-year-old male CM with hx of CAD s/p stent 2 months ago on Palvix, who presented to the ED for shortness of breath x2 days and admitted for COPD exacerbation, per CTA also with possible esophageal/gastric malignancy and admitted for further mgmt, HD#1 1. COPD Exacerbation, improving -stable on RA -Cont. Duonebs, Prednisone 40mg PO QD, and Doxycycline 10-mg PO BID X5 days 2. Smoker: encouraged cessation, risks discussed. 3. CAD s/p stent: advised importance on being on the Plavix Rx after his [place] a few months ago, patient reports he is noncompliant due to med costs. 4. 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 transfusion months ago but he cannot remember what state this occurred in -CLD diet, no sodas -NPO at midnight for EGD CTA CHEST 02/19: 1. No pulmonary embolus. 2. 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 3. Moderate emphysema. No pulmonary mass or infiltrate. 5. Anemia: Hgb 10.7, per patient at baseline, asymptomatic, can start FeSulfate once EGD done 6. DVT PPX: SCD's 7. Case mgmt consulted due to homelessness/assistance with D/C once stable 8. Dispo: cont. IP mgmt of COPD exacerbation, NPO at midnight, EGD tomorrow to assess CTA results Code Status: full Discussed Condition With: patient
--- NOTE | 2018-02-19 10:14 | P.CONGI ---
History of Present Illness Consult date: 02/19/18 Consult reason: Dysphasia, choking episodes, distal esophageal mass Chief complaint: COPD EXACERBATION MILD, ESOPHAGEAL THICKENING AT History of Present Illness: This is a slim 62-year-old male who is passing through [employer] and states he is going [place]. Patient's chief symptoms are some epigastric tenderness as well as dysphasia, dyspepsia, decreased appetite. Patient notes some weight loss at least greater than 20 pounds but unspecified length of time. Patient notes his dysphasia has gotten worse over the past 3 days and he struggled with eating any solid food and some choking episodes. Patient is a fair to poor historian on previous events so some of this information is being obtained from the record. Patient is a current smoker but states he has been trying to cut back. Patient denies any diarrhea or constipation and denies any current alcohol usage patient denies any family history of colon cancer. Patient states colonoscopy many years ago but then notes EGD approximately 2 months ago but does not remember what town he was in he states he also received a transfusion but was unaware of any other problems or issues. Current hemoglobin 10.7, bilirubin and LFTs are normal. CT scan with adjacent jayashree metastatic disease. 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 According to the record patient has had some shortness of breath is significant for COPD and had a Lexiscan stress test which was negative recently. Gastroenterology was consulted to assist with his esophageal GE junction mass and a plan of care. <Candida Fernandez - Last Filed: 02/19/18 10:26> Review of Systems All other systems reviewed negative except as stated in HPI <Candida Fernandez - Last Filed: 02/19/18 10:26> PMFSH - History History Provided By: Patient - Medical History Medical History: Medical History (Last Reviewed 02/19/18 @ 09:03 by Grisel Guerra MD) Asthma COPD (chronic obstructive pulmonary disease) Recent heart attack - Surgical History Surgical History: Surgical History (Last Reviewed 02/19/18 @ 09:03 by Grisel Guerra MD) Stented coronary artery - Family History Family History: Family History (Last Updated 02/19/18 @ 09:03 by Grisel Guerra MD) Other No pertinent family history - Tobacco History Second Hand Smoke Exposure: Yes Tobacco Use In Past 30 Days: Yes Smoking Status: Current every day smoker Tobacco Type: Cigarettes Packs Per Day: 1 - Alcohol History How Often Do You Have a Drink Containing Alcohol: Never - Substance Use History Substance History: No History of Abuse - Travel History History of Recent Travel: Yes (travels from state to state) Recent Travel in the [place] Within the Last 8 Weeks: Yes Recent Travel Out of the Country Within the Last 8 Weeks: No - Immunization History Tetanus Immunization: Unsure Hx Influenza Vaccine This Season: No <Candida Fernandez - Last Filed: 02/19/18 10:26> - Medical History Medical History: Medical History (Last Reviewed 02/19/18 @ 09:03 by Grisel Guerra MD) Asthma COPD (chronic obstructive pulmonary disease) Recent heart attack - Surgical History Surgical History: Surgical History (Last Reviewed 02/19/18 @ 09:03 by Grisel Guerra MD) Stented coronary artery - Family History Family History: Family History (Last Updated 02/19/18 @ 09:03 by Grisel Guerra MD) Other No pertinent family history <Ernesto Gaona - Last Filed: 02/19/18 20:50> Medications and Allergies Active Medications: Active Medications Acetaminophen (Tylenol) 650 mg PO Q4H PRN PRN Reason: Temp > 100.4 Al Hydroxide/Mg Hydroxide (Milk Of Magnesia Liq) 30 ml PO Q12H PRN PRN Reason: Mild Constipation Albuterol (Duoneb Neb (Prn)) 1 ampul NEB Q2HR NEB PRN PRN Reason: SOB/WHEEZING Bisacodyl (Dulcolax Supp) 10 mg RECTAL DAILY PRN PRN Reason: SEVERE CONSITIPATION Budesonide/Formoterol Fumarate (Symbicort 160/4.5 Mcg Inh) 2 puff INH BID YANN Doxycycline Hyclate (Vibramycin) 100 mg PO Q12HR YANN Guaifenesin (Mucinex Er) 600 mg PO BID YANN Sodium Chloride (Ns Inj) 1,000 mls @ 100 mls/hr IV.CONT .Q10H [facility] Last Admin: 02/19/18 06:48 Dose: 100 mls/hr Lactulose (Lactulose Liq) 30 ml PO DAILY PRN PRN Reason: SEVERE CONSITIPATION Morphine Sulfate (Morphine Inj) 2 mg IV.PUSH Q4H PRN PRN Reason: PAIN 6-10 Ondansetron HCl (Zofran Inj) 4 mg IV.PUSH Q6H PRN PRN Reason: NAUSEA OR VOMITING Prednisone (Deltasone) 40 mg PO DAILY ONE Stop: 02/20/18 10:01 Senna/Docusate Sodium (Eugenie-Colace) 1 tab PO BID [facility] Sennosides (Senokot) 17.2 mg PO Q12H PRN PRN Reason: Moderate Constipation <Candida Fernandez - Last Filed: 02/19/18 10:26> Active Medications: Active Medications Acetaminophen (Tylenol) 650 mg PO Q4H PRN PRN Reason: Temp > 100.4 Al Hydroxide/Mg Hydroxide (Milk Of Magnesia Liq) 30 ml PO Q12H PRN PRN Reason: Mild Constipation Albuterol (Duoneb Neb (Prn)) 1 ampul NEB Q2HR NEB PRN PRN Reason: SOB/WHEEZING Bisacodyl (Dulcolax Supp) 10 mg RECTAL DAILY PRN PRN Reason: SEVERE CONSITIPATION Budesonide/Formoterol Fumarate (Symbicort 160/4.5 Mcg Inh) 2 puff INH BID [facility] Last Admin: 02/19/18 20:09 Dose: 2 puff Doxycycline Hyclate (Vibramycin) 100 mg PO Q12HR [facility] Last Admin: 02/19/18 20:08 Dose: 100 mg Guaifenesin (Mucinex Er) 600 mg PO BID [facility] Last Admin: 02/19/18 20:08 Dose: 600 mg Sodium Chloride (Ns Inj) 1,000 mls @ 100 mls/hr IV.CONT .Q10H [facility] Last Admin: 02/19/18 18:48 Dose: 100 mls/hr Lactulose (Lactulose Liq) 30 ml PO DAILY PRN PRN Reason: SEVERE CONSITIPATION Morphine Sulfate (Morphine Inj) 2 mg IV.PUSH Q4H PRN PRN Reason: PAIN 6-10 Last Admin: 02/19/18 20:12 Dose: 2 mg Ondansetron HCl (Zofran Inj) 4 mg IV.PUSH Q6H PRN PRN Reason: NAUSEA OR VOMITING Pantoprazole Sodium (Protonix Inj) 40 mg IV.PUSH Q12H [facility] Last Admin: 02/19/18 11:19 Dose: 40 mg Prednisone (Deltasone) 40 mg PO DAILY ONE Stop: 02/20/18 10:01 Senna/Docusate Sodium (Eugenie-Colace) 1 tab PO BID YANN Last Admin: 02/19/18 20:08 Dose: 1 tab Sennosides (Senokot) 17.2 mg PO Q12H PRN PRN Reason: Moderate Constipation <Ernesto Gaona - Last Filed: 02/19/18 20:50> Allergies Allergy/AdvReac Type Severity Reaction Status Date / Time penicillin G Allergy Intermediate Rash Verified 02/19/18 03:40 Home Medications Medication Instructions Recorded Confirmed Type No Known Home Medications 02/19/18 02/19/18 History Exam Vital signs: Vital Signs 02/19/18 03:30 02/19/18 03:45 02/19/18 03:55 Temperature 99.1 F Pulse Rate 109 H 92 H Respiratory Rate 18 Blood Pressure 132/76 Pulse Oximetry 96 97 02/19/18 06:00 02/19/18 07:32 02/19/18 08:00 Temperature 98.1 F Pulse Rate 97 H 73 62 Respiratory Rate 22 21 16 Blood Pressure 132/67 140/84 155/74 H Pulse Oximetry 97 96 94 L Intake & Output 02/18/18 02/19/18 02/19/18 18:59 06:59 18:59 Weight 58.967 kg - Constitutional moderate distress, thin, cachectic, cooperative - Routine HEENT Exam Head: Present: normocephalic ENT: Present: mucous membranes moist - Routine Neck Exam Present: supple (Mild hoarseness noted) - Routine Respiratory Exam Present: accessory muscle use (No obvious shortness of breath at rest) - Routine Cardiovascular Exam Present: S1, S2 - Routine Abdominal Exam Present: soft (Mild epigastric discomfort to light palpation but no other abdominal pain) - Routine Skin Exam Present: intact - Routine Neurological Exam Present: alert (Attempting to answer some simple questions but poor historian) <Candida Fernandez - Last Filed: 02/19/18 10:26> Vital signs: Vital Signs 02/19/18 03:30 02/19/18 03:45 02/19/18 03:55 Temperature 99.1 F Pulse Rate 109 H 92 H Respiratory Rate 18 Blood Pressure 132/76 Pulse Oximetry 96 97 02/19/18 06:00 02/19/18 07:32 02/19/18 08:00 Temperature 98.1 F Pulse Rate 97 H 73 62 Respiratory Rate 22 21 16 Blood Pressure 132/67 140/84 155/74 H Pulse Oximetry 97 96 94 L 02/19/18 11:01 02/19/18 11:12 02/19/18 12:00 Temperature 97.6 F Pulse Rate 65 Respiratory Rate 18 16 Blood Pressure 136/67 Pulse Oximetry 97 97 02/19/18 15:57 Temperature 97.5 F L Pulse Rate 65 Respiratory Rate 16 Blood Pressure 144/67 H Pulse Oximetry 96 Intake & Output 02/19/18 02/19/18 02/20/18 06:59 18:59 06:59 Intake Total 966 / 966 Balance 966 / 966 Weight 58.967 kg 58.967 kg Intake: IV 966 / 966 NS Inj 1,000 ML @ 100 mls/hr IV 966 / 966 .CONT .Q10H YANN Rx#:[id number] Other: Weight On Admission 58.967 kg <Ernesto Gaona E - Last Filed: 02/19/18 20:50> Results - Labs CBC & Chem 7: 02/19/18 03:55 02/19/18 03:55 Labs: Laboratory Results - last 24 hr 02/19/18 02/19/18 02/19/18 03:55 03:55 03:55 WBC 5.5 RBC 4.00 L Hgb 10.7 L Hct 33.1 L MCV 82.8 MCH 26.8 L MCHC 32.3 RDW 19.6 H Plt Count 330 MPV 7.0 Neut % (Auto) 64.0 Lymph % (Auto) 18.5 [place] % (Auto) 14.1 H Eos % (Auto) 2.3 Baso % (Auto) 1.1 Neut # (Auto) 3.5 Lymph # (Auto) 1.0 [place] # (Auto) 0.8 Eos # (Auto) 0.1 Baso # (Auto) 0.1 WBC Differential . Differential Comment Auto diff final Sodium 140 Potassium 3.6 Chloride 102 Carbon Dioxide 27.4 Anion Gap 11 BUN 13 Creatinine 0.79 Estimated GFR Greater than 89 Random Glucose 93 Calcium 8.8 Total Bilirubin 0.5 AST 18 ALT 14 Alkaline Phosphatase 93 Troponin I Less than 0.02 L B-Natriuretic Peptide 33 Total Protein 7.1 D Albumin 3.0 L - Imaging Impressions Chest CTA 02/19/18 03:41 CONCLUSION: 1. No pulmonary embolus. 2. 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 3. Moderate emphysema. No pulmonary mass or infiltrate. <Candida Fernandez - Last Filed: 02/19/18 10:26> - Labs CBC & Chem 7: 02/19/18 03:55 02/19/18 03:55 Labs: Laboratory Results - last 24 hr 02/19/18 02/19/18 02/19/18 03:55 03:55 03:55 WBC 5.5 RBC 4.00 L Hgb 10.7 L Hct 33.1 L MCV 82.8 MCH 26.8 L MCHC 32.3 RDW 19.6 H Plt Count 330 MPV 7.0 Neut % (Auto) 64.0 Lymph % (Auto) 18.5 [place] % (Auto) 14.1 H Eos % (Auto) 2.3 Baso % (Auto) 1.1 Neut # (Auto) 3.5 Lymph # (Auto) 1.0 [place] # (Auto) 0.8 Eos # (Auto) 0.1 Baso # (Auto) 0.1 WBC Differential . Differential Comment Auto diff final Sodium 140 Potassium 3.6 Chloride 102 Carbon Dioxide 27.4 Anion Gap 11 BUN 13 Creatinine 0.79 Estimated GFR Greater than 89 Random Glucose 93 Calcium 8.8 Total Bilirubin 0.5 AST 18 ALT 14 Alkaline Phosphatase 93 Troponin I Less than 0.02 L B-Natriuretic Peptide 33 Total Protein 7.1 D Albumin 3.0 L - Imaging Impressions Chest CTA 02/19/18 03:41 CONCLUSION: 1. No pulmonary embolus. 2. 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 3. Moderate emphysema. No pulmonary mass or infiltrate. 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 States he also had a transfusion during that time for anemia but was unaware of any other issues or esophageal mass. Patient states colonoscopy years ago unknown findings Patient denies any diarrhea or constipation Shortness of breath, smoker, recent stress test negative Plan Diet clear liquids today, no solid food no carbonated beverages head of bed elevated while patient is drinking and must be full alert. If patient has any episodes of choking make patient n.p.o. this was discussed with nursing staff and hospitalist. Consent for EGD in a.m. N.p.o. at midnight PPI IV Zofran for nausea, pain management per attending, p.o. steroids Further recommendations to follow Patient was seen per myself and Dr. Gaona, note was written on his behalf <Candida Fernandez M - Last Filed: 02/19/18 10:26> - Plan Patient seen and examined Agree with above Continue with current supportive care Monitor labs EGD tomorrow <Ernesto Gaona - Last Filed: 02/19/18 20:50>
[2018-02-19] MEDS: Senna/Docusate Sodium 8.6/50 MG Tablet PO SCH ×2 (10:31→20:08)
[2018-02-19] MEDS: Budesonide-Formoterol 160/4.5 MCG 6 GM Inhaler INH SCH ×2 (10:31→20:09)
[2018-02-19] MEDS: guaiFENesin 600 MG ER Tablet PO SCH ×2 (10:31→20:08)
[2018-02-19] MEDS: Morphine Inj 4 MG/ML Vial IV.PUSH PRN ×3 (10:32→20:12)
[2018-02-19] MEDS: Pantoprazole Inj 40 MG Vial IV.PUSH SCH ×2 (11:19→23:37)
[2018-02-20] MEDS: Morphine Inj 4 MG/ML Vial IV.PUSH PRN ×3 (01:50→20:18)
[2018-02-20] MEDS ORDERED: Chlorhexidine Gluconate 2% 1 Pack (2 Cloths) TOPICAL ONE (04:02)
[2018-02-20] MEDS: Sod Chloride 0.9% Inj 1,000 ML IV.CONT SCH ×3 (04:02→23:56)
[2018-02-20] MEDS ORDERED: Sodium Chlor 0.9% Inj 500 ML IV.SIG SCH (05:00)
[2018-02-20 06:07] LABS: Baso % (Auto) 0.4 % (0.0-2.0); Eos % (Auto) 0.1 % (0.0-4.0); Hematocrit 26.2 % (39.0-51.0); Hemoglobin 8.5 gm/dL (13.0-17.0); Lymph # (Auto) 0.8 th/mm3 (1.0-4.8); Lymph % (Auto) 19.9 % (9.0-44.0); Mean Corpuscular HGB Conc 32.4 % (32.0-36.0); Mean Corpuscular Hemoglobin 26.4 pg (27.0-34.0); Mean Corpuscular Volume 81.4 fL (80.0-100.0); Mean Platelet Volume 7.2 fL (7.0-11.0); Mono # (Auto) 0.6 th/mm3 (0.0-0.9); Mono % (Auto) 16.3 % (0.0-8.0); Neut # (Auto) 2.5 th/mm3 (1.8-7.7); Neut % (Auto) 63.3 % (16.0-70.0); Platelet Count 293 th/mm3 (150-450); Red Blood Count 3.22 mil/mm3 (4.50-5.90); Red Cell Distribution Width 18.8 % (11.6-17.2); White Blood Count 3.9 th/mm3 (4.0-11.0)
[2018-02-20 06:21] LABS: Albumin 2.6 g/dL (3.4-5.0); Anion Gap 9 meq/L (5-15); Aspartate Aminotransferase 13 U/L (15-37); Blood Urea Nitrogen 8 mg/dL (7-18); Calcium 8.5 mg/dL (8.5-10.1); Carbon Dioxide 25.1 meq/L (21.0-32.0); Chloride 108 meq/L (98-107); Glomerular Filtration Rate Greater Than 89 mL/min (>89); Glucose,Random 92 mg/dL (74-106); Potassium 3.3 meq/L (3.5-5.1); Sodium 142 meq/L (136-145)
[2018-02-20 06:26] LABS: Alanine Aminotransferase 12 U/L (12-78); Alkaline Phosphatase 73 U/L (45-117); Total Protein 5.8 g/dL (6.4-8.2)
--- NOTE | 2018-02-20 08:13 | P.PN ---
Subjective Interval history: Patient doing well overnight, reports no episodes choking with CLD yesterday. Patient is voiding/stooling without difficulty. No events per RN. Physical Exam Vital signs: Vital Signs 02/19/18 11:01 02/19/18 11:12 02/19/18 12:00 Temperature 97.6 F Pulse Rate 65 Respiratory Rate 18 16 Blood Pressure 136/67 Pulse Oximetry 97 97 02/19/18 15:57 02/19/18 19:00 02/19/18 20:00 Temperature 97.5 F L 98.6 F Pulse Rate 65 81 Respiratory Rate 16 16 Blood Pressure 144/67 H 142/63 H Pulse Oximetry 96 94 L 96 02/20/18 00:00 02/20/18 04:00 02/20/18 05:56 Temperature 98.5 F 97.3 F L Pulse Rate 73 58 L Respiratory Rate 17 16 Blood Pressure 164/77 H 146/71 H Pulse Oximetry 95 95 95 Intake & Output 02/19/18 02/20/18 02/20/18 18:59 06:59 18:59 Intake Total 966 / 966 1000 / 1000 Output Total 1200 / 1200 Balance 966 / 966 -200 / -200 Weight 58.967 kg 59.9 kg Intake: IV 966 / 966 1000 / 1000 NS Inj 1,000 ML @ 100 mls/hr IV 966 / 966 1000 / 1000 .CONT .Q10H YANN Rx#:[id number] Output: Urine 1200 / 1200 Other: # Bowel Movements 0 Weight On Admission 58.967 kg Narrative: GENERAL: thin, male, in NAD SKIN: Warm and dry. HEENT: Normocephalic. No scleral icterus. No injection or drainage. MOM, poor dentition. NECK: Supple, trachea midline. No JVD or lymphadenopathy. CARDIOVASCULAR: Regular rate and rhythm without murmurs, gallops, or rubs. RESPIRATORY: Breath sounds equal bilaterally. No accessory muscle use. GASTROINTESTINAL: Abdomen soft, non-tender, nondistended. MUSCULOSKELETAL: No cyanosis, or edema. BACK: Nontender without obvious deformity. No CVA tenderness. Results - Labs CBC & Chem 7: 02/20/18 04:30 02/20/18 04:30 Laboratory Results - last 24 hr 02/20/18 02/20/18 04:30 04:30 WBC 3.9 L RBC 3.22 L Hgb 8.5 L D Hct 26.2 L MCV 81.4 MCH 26.4 L MCHC 32.4 RDW 18.8 H Plt Count 293 MPV 7.2 Neut % (Auto) 63.3 Lymph % (Auto) 19.9 [place] % (Auto) 16.3 H Eos % (Auto) 0.1 Baso % (Auto) 0.4 Neut # (Auto) 2.5 Lymph # (Auto) 0.8 L [place] # (Auto) 0.6 Eos # (Auto) 0.0 Baso # (Auto) 0.0 WBC Differential . Differential Comment Auto diff final Sodium 142 Potassium 3.3 L Chloride 108 H Carbon Dioxide 25.1 Anion Gap 9 BUN 8 Creatinine 0.59 L Estimated GFR Greater than 89 Random Glucose 92 Calcium 8.5 Total Bilirubin 0.5 AST 13 L ALT 12 Alkaline Phosphatase 73 Total Protein 5.8 L D Albumin 2.6 L Assessment and Plan - Assessment (1) COPD exacerbation Code(s): J44.1 - Chronic obstructive pulmonary disease with (acute) exacerbation Status: Acute (2) CAD (coronary artery disease) Code(s): I25.10 - Atherosclerotic heart disease of [place] coronary artery without angina pectoris Status: Chronic (3) History of heart artery stent Code(s): Z95.5 - Presence of coronary angioplasty implant and graft Status: Chronic (4) Tobacco abuse Code(s): Z72.0 - Tobacco use Status: Acute - Plan This is a 62-year-old male CM with hx of CAD s/p stent 2 months ago on Palvix, who presented to the ED for shortness of breath x2 days and admitted for COPD exacerbation, per CTA also with possible esophageal/gastric malignancy and admitted for further mgmt, HD#2 1. COPD Exacerbation, improving -stable on RA -Cont. Duonebs, Prednisone 40mg PO QD, and Doxycycline 10mg PO BID X5 days 2. Smoker: encouraged cessation, risks discussed. 3. CAD s/p stent: advised importance on being on the Plavix Rx after his NE a few months ago, patient reports he is noncompliant due to med costs. 4. CTA with Suspected Distal Esophageal Malignancy/Uppe GI Bleed -GI consulted, appreciate assistance with mgmt -Patient reports that he was told that he had gatric polys with suspected malignancy and anemia req. transfusion months ago but he cannot remember what state this occurred in -CLD diet, no sodas -EGD this AM Per GI reccs on 02/19- EGD in a.m., N.p.o. at midnight, PPI IV, Zofran for nausea , pain management per attending, p.o. steroids Further recommendations to follow. CTA CHEST 02/19: 1. No pulmonary embolus. 2. 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 3. Moderate emphysema. No pulmonary mass or infiltrate. 5. Anemia: Hgb 8.5 from 10.7, asymptomatic, can start FeSulfate once EGD done. F /U in AM. 6. DVT PPX: SCD's 7. Case mgmt consulted due to homelessness/assistance with D/C once stable 8. Dispo: cont. IP mgmt of COPD exacerbation and F/U EGD results Code Status: full Discussed Condition With: patient, RN
[2018-02-20] MEDS ORDERED: predniSONE 20 MG Tablet PO ONE (10:00)
--- NOTE | 2018-02-20 10:49 | GIPROC ---
[facility] [address] [facility]. [facility], [address] EGD PROCEDURE REPORT EXAM DATE: 02/20/2018 PATIENT NAME: Chico Baird MR #: [id number] BIRTHDATE: 1955 ATTENDING: Mona Higginbotham MD ORDER #: [id number] COMPUTER FORENSIC SPECIALIST: Nazia Theodore and Karis Aguilar STATUS: inpatient INDICATIONS: The patient is a 62 yr old male here for an EGD due to history of esophageal reflux and abnormal CT of the GI tract PROCEDURE PERFORMED: EGD w/ biopsy MEDICATIONS: None and Per Anesthesia. TOPICAL ANESTHETIC: CONSENT: The patient understands the risks and benefits of the procedure and understands that these risks include, but are not limited to: sedation, allergic reaction, infection, perforation and/or bleeding. Alternative means of evaluation and treatment include, among others: physical exam, x-rays, and/or surgical intervention. The patient elects to proceed with this endoscopic procedure. medical equipment was checked for proper function. Hand hygiene and appropriate measures for infection prevention was taken. After the risks, benefits and alternatives of the procedure were thoroughly explained, Informed consent was verified, confirmed and timeout was successfully executed by the treatment team. The patient was anesthetized with topical anesthesia and the [id number] endoscope was introduced through the mouth and advanced to the second portion of the duodenum. Retroflexed views revealed no abnormalities The gastroscope was then slowly withdrawn and removed. ESOPHAGUS: There was [place] Class B esophagitis noted. Multiple biopsies were performed using cold forceps. Sample sent for histology. STOMACH: There was erythematous moderate gastritis in the gastric antrum. A biopsy was performed using cold forceps. Sample sent for histology. DUODENUM: Moderate duodenal inflammation was found in the duodenal bulb. ADVERSE EVENTS: There were no complications. IMPRESSIONS: 1. There was [place] Class B esophagitis noted; multiple biopsies were performed 2. There was erythematous gastritis in the gastric antrum; biopsy was performed 3. Duodenal inflammation was found in the duodenal bulb 4. Retroflexed views revealed no abnormalities RECOMMENDATIONS: 1. Await biopsy results. Biopsy results will not be ready for 7-10 days. If you don't hear from us in two weeks, call our office for biopsy results. 2. Anti-reflux regimen 3. Continue PPI 4. Xray: CT ABD W/CONTRAST PATIENT CONDITION: stable DISPOSITION: Inpatient REPEAT EXAM: Return 1 year EGD pending biopsy results Mona Higginbotham MD eSigned: Mona Higginbotham MD 02/20/2018 10:48 AM cc: PATIENT NAME: Chico Baird MR#: [id number]
[2018-02-20] MEDS ORDERED: Diatrizoate Meglum/Diatrizoate Sod Liq 9 ML UDC PO ONE (12:00)
[2018-02-20] MEDS: Pantoprazole Inj 40 MG Vial IV.PUSH SCH ×3 (12:05→23:56)
[2018-02-20] MEDS: Budesonide-Formoterol 160/4.5 MCG 6 GM Inhaler INH SCH ×2 (12:06→20:17)
[2018-02-20] MEDS: guaiFENesin 600 MG ER Tablet PO SCH ×2 (12:06→20:17)
[2018-02-20] MEDS: Senna/Docusate Sodium 8.6/50 MG Tablet PO SCH ×2 (12:06→20:18)
[2018-02-20] MEDS ORDERED: Potassium Chloride 10 MEQ ER Capsule PO ONE (12:45)
[2018-02-20] MEDS: predniSONE 20 MG Tablet PO SCH (13:37)
--- NOTE | 2018-02-20 20:26 | CT ---
EXAM DATE: 02/20/2018 7:39 PM EDT AGE/SEX: 62 years / Male INDICATIONS: Abnormal chest xray CLINICAL DATA: This is the patient's initial encounter. Patient reports that signs and symptoms have been present for 1 day and indicates a pain score of 0/10. MEDICAL/SURGICAL HISTORY: Cardiovascular disease. Chronic obstructive pulmonary disease. Coron [place] artery stent. ORAL CONTRAST: Prescribed oral contrast ingested. RADIATION DOSE: 6.87 CTDI (mGy) COMPARISON: [facility], CTA PULMONARY W CONTRAST W 3D, 02/19/2018. . TECHNIQUE: Multiple contiguous axial images were obtained through the abdomen and pelvis following b olus infusion of 77 ml Omnipaque 350 (iohexol) nonionic water-soluble contrast as a single exam dos e. Prescribed oral contrast ingested. Using automated exposure control and adjustment of the mA and/ or kV according to patient size, radiation dose was kept as low as reasonably achievable to obtain op timal diagnostic quality images. DICOM format image data is available electronically for review and comparison. FINDINGS: Lower Lungs: The visualized lower lungs are clear. Liver: There is a solitary 4 mm low-density lesion in the lateral dome of the right lobe which is too small to further characterize, possibly representing a cyst. The remainder of the liver has a homoge neous pattern of enhancement. No biliary ductal dilatation. No calcified gallstones. Spleen: Homogeneous density without enlargement. Pancreas: Unremarkable without mass or calcification. Kidneys: Normal in size and shape. No evidence of mass or hydronephrosis. Adrenal Glands: Unremarkable. Aorta: The aorta and proximal iliac vessels are grossly unremarkable without aneurysmal dilation. Bowel/Mesentery: There is a 1.6 cm oval mass anterior to the GE junction best seen on axial image #5 . There is questionable concentric thickening of the GE junction. Mild distention of the stomach. No dilated loops of small or large bowel. Oral contrast passes through to the left colon. Scattered dive rticula in the sigmoid colon without radiographic evidence of diverticulitis. Abdominal Wall: Intact. Retroperitoneum: No evidence of adenopathy in the retrocrural, para-aortic, or deep pelvic regions. Bladder: Contours are smooth. Reproductive Organs: No abnormal masses or calcifications seen. Inguinal: The inguinal region is unremarkable without evidence of adenopathy. Bony Structures: Unremarkable. CONCLUSION: 1. 1.6 cm mass anterior to the GE junction suspicious for an enlarged lymph node. 2. Possible concentric thickening of the GE junction; recommend direct characterization with endosco py to evaluate for possible mass. 3. 4 mm low-density lesion in the dome of the liver is too small to further characterize. Electronically signed by: Daniel Thomas MD 02/20/2018 8:24 PM EDT
[2018-02-21] MEDS: Morphine Inj 4 MG/ML Vial IV.PUSH PRN ×6 (00:45→22:02)
[2018-02-21 07:44] LABS: Baso % (Auto) 0.3 % (0.0-2.0); Eos % (Auto) 0.1 % (0.0-4.0); Hemoglobin 8.3 gm/dL (13.0-17.0); Lymph # (Auto) 1.1 th/mm3 (1.0-4.8); Lymph % (Auto) 23.1 % (9.0-44.0); Mean Corpuscular HGB Conc 33.4 % (32.0-36.0); Mean Corpuscular Volume 80.9 fL (80.0-100.0); Mean Platelet Volume 7.3 fL (7.0-11.0); Mono # (Auto) 0.7 th/mm3 (0.0-0.9); Mono % (Auto) 15.1 % (0.0-8.0); Neut # (Auto) 2.8 th/mm3 (1.8-7.7); Neut % (Auto) 61.4 % (16.0-70.0); Platelet Count 301 th/mm3 (150-450); Red Blood Count 3.09 mil/mm3 (4.50-5.90); White Blood Count 4.6 th/mm3 (4.0-11.0)
[2018-02-21 07:47] LABS: Alanine Aminotransferase 12 U/L (12-78); Anion Gap 10 meq/L (5-15); Aspartate Aminotransferase 9 U/L (15-37); Blood Urea Nitrogen 9 mg/dL (7-18); Calcium 8.1 mg/dL (8.5-10.1); Carbon Dioxide 26.9 meq/L (21.0-32.0); Chloride 107 meq/L (98-107); Glomerular Filtration Rate Greater Than 89 mL/min (>89); Glucose,Random 92 mg/dL (74-106); Potassium 3.7 meq/L (3.5-5.1); Sodium 144 meq/L (136-145)
[2018-02-21 07:49] LABS: Albumin 2.4 g/dL (3.4-5.0); Alkaline Phosphatase 71 U/L (45-117); Total Protein 5.4 g/dL (6.4-8.2)
--- NOTE | 2018-02-21 08:04 | P.PN ---
Subjective Interval history: Patient doing well, reports that he is tolerating PO, voiding/stooling. Denies bloody stools. He is very thankful that he is getting good care while here, he also reports that he has spoken to non-human beings from space and that he feels at peace, he has met God before in other states that he has visited. No other concerns, denies S/H ideation. Physical Exam Vital signs: Vital Signs 02/20/18 10:54 02/20/18 11:11 02/20/18 11:40 Temperature 97.0 F L 97.6 F 97.5 F L Pulse Rate 62 52 L 57 L Respiratory Rate 18 18 16 Blood Pressure 112/55 L 112/55 L 153/72 H Pulse Oximetry 95 96 97 02/20/18 15:47 02/20/18 20:11 02/20/18 23:28 Temperature 97.9 F 97.6 F 98.2 F Pulse Rate 75 69 64 Respiratory Rate 16 18 20 Blood Pressure 130/60 131/70 127/58 L Pulse Oximetry 98 97 96 02/21/18 04:00 02/21/18 05:08 02/21/18 07:45 Temperature 97.9 F 98.7 F Pulse Rate 61 61 71 Respiratory Rate 21 20 18 Blood Pressure 152/68 H 153/67 H Pulse Oximetry 97 97 Intake & Output 02/20/18 02/21/18 02/21/18 18:59 06:59 18:59 Intake Total 1300 / 1300 300 / 300 Balance 1300 / 1300 300 / 300 Intake: IV 1200 / 1200 300 / 300 NS Inj 1,000 ML @ 100 mls/hr IV 700 / 700 300 / 300 .CONT .Q10H YANN Rx#:[id number] LR 1000 mL Inj 1,000 ML @ 30 500 / 500 mls/hr IV.SIG .Q24H YANN Rx#: [id number] Anesthesia Amount 100 / 100 Other: # Voids 4 4 Date of Last Bowel Movement 02/20/18 Narrative: GENERAL: thin, male, in NAD SKIN: Warm and dry. HEENT: Normocephalic. No scleral icterus. No injection or drainage. MOM, poor dentition. NECK: Supple, trachea midline. No JVD or lymphadenopathy. CARDIOVASCULAR: Regular rate and rhythm without murmurs, gallops, or rubs. RESPIRATORY: Mild exp. wheezing BL. No accessory muscle use. GASTROINTESTINAL: Abdomen soft, non-tender, nondistended. MUSCULOSKELETAL: No cyanosis, or edema. BACK: Nontender without obvious deformity. No CVA tenderness. PSYCH: loose associations, grandiose thinking, speaking of terrestial beings that he interacts with, pleasant, AAOx3 Results - Labs CBC & Chem 7: 02/21/18 06:40 02/21/18 06:40 Laboratory Results - last 24 hr 02/21/18 02/21/18 06:40 06:40 WBC 4.6 RBC 3.09 L Hgb 8.3 L Hct 25.0 L MCV 80.9 MCH 27.0 MCHC 33.4 RDW 19.0 H Plt Count 301 MPV 7.3 Neut % (Auto) 61.4 Lymph % (Auto) 23.1 Holt % (Auto) 15.1 H Eos % (Auto) 0.1 Baso % (Auto) 0.3 Neut # (Auto) 2.8 Lymph # (Auto) 1.1 [place] # (Auto) 0.7 Eos # (Auto) 0.0 Baso # (Auto) 0.0 WBC Differential . Differential Comment Auto diff final Sodium 144 Potassium 3.7 Chloride 107 Carbon Dioxide 26.9 Anion Gap 10 BUN 9 Creatinine 0.75 Estimated GFR Greater than 89 Random Glucose 92 Calcium 8.1 L Total Bilirubin 0.4 AST 9 L ALT 12 Alkaline Phosphatase 71 Total Protein 5.4 L Albumin 2.4 L - Imaging Impressions Abdomen/Pelvis CT 02/20/18 00:00 CONCLUSION: 1. 1.6 cm mass anterior to the GE junction suspicious for an enlarged lymph node. 2. Possible concentric thickening of the GE junction; recommend direct characterization with endoscopy to evaluate for possible mass. 3. 4 mm low-density lesion in the dome of the liver is too small to further characterize. Assessment and Plan - Assessment (1) COPD exacerbation Code(s): J44.1 - Chronic obstructive pulmonary disease with (acute) exacerbation Status: Acute (2) CAD (coronary artery disease) Code(s): I25.10 - Atherosclerotic heart disease of [place] coronary artery without angina pectoris Status: Chronic (3) History of heart artery stent Code(s): Z95.5 - Presence of coronary angioplasty implant and graft Status: Chronic (4) Tobacco abuse Code(s): Z72.0 - Tobacco use Status: Acute - Plan This is a 62-year-old male CM with hx of CAD s/p stent 2 months ago on Palvix, who presented to the ED for shortness of breath x2 days and admitted for COPD exacerbation, per CTA also with possible esophageal/gastric malignancy and admitted for further mgmt, HD#2 1. COPD Exacerbation, improving -stable on RA -Cont. Duonebs Q6hrs scheduled instead of PRN, Prednisone 40mg PO QD and Doxycycline 10mg PO BID X5 days (started 02/19) 2. Smoker: encouraged cessation, risks discussed. 3. CAD s/p stent: advised importance on being on the Plavix Rx after his [place] a few months ago, patient reports he is noncompliant due to med costs. 4. 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 transfusion months ago but he cannot remember what state this occurred in -s/p EGD on 02/20 pending bx results -CT ABD ordered per GI, see below CTA CHEST 02/19: 1. No pulmonary embolus. 2. 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 3. Moderate emphysema. No pulmonary mass or infiltrate. CT ABD: 1. 1.6 cm mass anterior to the GE junction suspicious for an enlarged lymph node. 2. Possible concentric thickening of the GE junction; recommend direct characterization with endoscopy to evaluate for possible mass. 3. 4 mm low-density lesion in the dome of the liver is too small to further characterize. 5. Anemia: Hgb 8.3 from 8.5, asymptomatic, Rx FeSulfate, F/U in AM. 6. DVT PPX: SCD's 7. Case mgmt consulted due to homelessness/assistance with D/C once stable 8. Loose Associations: patient is pleasant but since admission has been speaking about terrestrial beings, grandiose thinking, etc. Will get Psych consult to further assess, not on psych meds, denies hx. 9. Dispo: cont. IP mgmt of COPD exacerbation and F/U GI reccs and pending Psych consult Code Status: full Discussed Condition With: patient, CM
[2018-02-21] MEDS: predniSONE 20 MG Tablet PO SCH (08:32)
[2018-02-21] MEDS: Senna/Docusate Sodium 8.6/50 MG Tablet PO SCH ×2 (08:32→20:09)
[2018-02-21] MEDS: Budesonide-Formoterol 160/4.5 MCG 6 GM Inhaler INH SCH ×2 (08:33→20:10)
[2018-02-21] MEDS: guaiFENesin 600 MG ER Tablet PO SCH ×2 (08:33→20:09)
--- NOTE | 2018-02-21 11:57 | P.PNGI ---
Subjective Interval history: Patient is talkative resting in the bed still complaining of some epigastric and abdominal pain No nausea no Physical Exam Vital signs: Vital Signs 02/20/18 15:47 02/20/18 20:11 02/20/18 23:28 Temperature 97.9 F 97.6 F 98.2 F Pulse Rate 75 69 64 Respiratory Rate 16 18 20 Blood Pressure 130/60 131/70 127/58 L Pulse Oximetry 98 97 96 02/21/18 04:00 02/21/18 05:08 02/21/18 07:45 Temperature 97.9 F 98.7 F Pulse Rate 61 61 71 Respiratory Rate 21 20 18 Blood Pressure 152/68 H 153/67 H Pulse Oximetry 97 97 02/21/18 10:38 02/21/18 11:42 Temperature 97.8 F Pulse Rate 57 L 66 Respiratory Rate 22 18 Blood Pressure 129/59 L Pulse Oximetry 99 97 Intake & Output 02/20/18 02/21/18 02/21/18 18:59 06:59 18:59 Intake Total 1300 / 1300 300 / 300 Balance 1300 / 1300 300 / 300 Intake: IV 1200 / 1200 300 / 300 NS Inj 1,000 ML @ 100 mls/hr IV 700 / 700 300 / 300 .CONT .Q10H YANN Rx#:[id number] LR 1000 mL Inj 1,000 ML @ 30 500 / 500 mls/hr IV.SIG .Q24H YANN Rx#: [id number] Anesthesia Amount 100 / 100 Other: # Voids 4 4 Date of Last Bowel Movement 02/20/18 02/20/18 - Constitutional mild distress, thin, cachectic, disheveled - Routine HEENT Exam Head: Present: normocephalic ENT: Present: mucous membranes moist - Routine Respiratory Exam Present: accessory muscle use - Routine Cardiovascular Exam Present: S1 (No obvious shortness of breath), S2 - Routine Abdominal Exam Present: soft, tenderness (Epigastric and gastric area) Results - Labs CBC & Chem 7: 02/21/18 06:40 02/21/18 06:40 Laboratory Results - last 24 hr 02/21/18 02/21/18 06:40 06:40 WBC 4.6 RBC 3.09 L Hgb 8.3 L Hct 25.0 L MCV 80.9 MCH 27.0 MCHC 33.4 RDW 19.0 H Plt Count 301 MPV 7.3 Neut % (Auto) 61.4 Lymph % (Auto) 23.1 [place] % (Auto) 15.1 H Eos % (Auto) 0.1 Baso % (Auto) 0.3 Neut # (Auto) 2.8 Lymph # (Auto) 1.1 [place] # (Auto) 0.7 Eos # (Auto) 0.0 Baso # (Auto) 0.0 WBC Differential . Differential Comment Auto diff final Sodium 144 Potassium 3.7 Chloride 107 Carbon Dioxide 26.9 Anion Gap 10 BUN 9 Creatinine 0.75 Estimated GFR Greater than 89 Random Glucose 92 Calcium 8.1 L Total Bilirubin 0.4 AST 9 L ALT 12 Alkaline Phosphatase 71 Total Protein 5.4 L Albumin 2.4 L - Imaging Impressions Abdomen/Pelvis CT 02/20/18 00:00 CONCLUSION: 1. 1.6 cm mass anterior to the GE junction suspicious for an enlarged lymph node. 2. Possible concentric thickening of the GE junction; recommend direct characterization with endoscopy to evaluate for possible mass. 3. 4 mm low-density lesion in the dome of the liver is too small to further characterize. Assessment and Plan - Plan Esophageal mass at the GE junction seen on CT scan with adjacent jayashree metastatic disease, probable esophageal cancer Dysphasia, note some choking episodes on solid food and some shortness of breath Dyspepsia, often known for 1 month but worsening over the past 2-3 days Weight loss at least greater than 20 pounds, decreased appetite Anemia current hemoglobin 10.7, patient denies any hematemesis or rectal bleeding Poor historian states colonoscopy years ago but states EGD approximately 2 months ago but on aware of where the test was done or what city. States he also had a transfusion during that time for anemia but was unaware of any other issues or esophageal mass. Patient states colonoscopy years ago unknown findings Patient denies any diarrhea or constipation Shortness of breath, smoker, recent stress test negative 02/21/2018 patient is resting in the bed states he is still having some epigastric tenderness no abdominal pain. Encourage patient to maintain mobility and sit up in bed in chair if possible patient is status post EGD which showed esophagitis erythematous gastritis and duodenal inflammation. Patient appears to be swallowing without any choking episodes. Encourage patient to follow-up in the GI office or follow-up with someone and stay on omeprazole medicine as well as reflux precautions. Avoid spicy fatty foods to slowly and elevate head of bed at night when sleeping. Current hemoglobin 8.3 Anemia, microscopic blood loss versus chronic disease. Inflammation Plan Diet as tolerated PPI, omeprazole 40 mg twice daily Antireflux regimen Biopsies are pending Monitor abdominal pain and epigastric pain Monitor labs Patient was seen per myself and Dr. Higginbotham, note was written on his behalf
[2018-02-21] MEDS: Sod Chloride 0.9% Inj 1,000 ML IV.CONT SCH ×3 (12:31→22:15)
[2018-02-21] MEDS: Pantoprazole Inj 40 MG Vial IV.PUSH SCH ×2 (12:31→22:02)
[2018-02-21] MEDS: Ferrous Sulfate 325 MG Tablet PO SCH ×2 (12:32→17:06)
[2018-02-21] MEDS: MethylPREDNISolone Sod Succinate Inj 40 MG/ML Vial IV.PUSH SCH ×2 (14:00→20:09)
[2018-02-22] MEDS: Morphine Inj 4 MG/ML Vial IV.PUSH PRN ×2 (02:32→08:40)
[2018-02-22] MEDS: MethylPREDNISolone Sod Succinate Inj 40 MG/ML Vial IV.PUSH SCH ×3 (02:33→14:39)
[2018-02-22] MEDS: Sod Chloride 0.9% Inj 1,000 ML IV.CONT SCH ×2 (04:25→14:40)
[2018-02-22 05:08] LABS: Baso % (Auto) 0.1 % (0.0-2.0); Eos % (Auto) 0.1 % (0.0-4.0); Hematocrit 25.3 % (39.0-51.0); Hemoglobin 8.4 gm/dL (13.0-17.0); Lymph # (Auto) 0.4 th/mm3 (1.0-4.8); Lymph % (Auto) 8.6 % (9.0-44.0); Mean Corpuscular HGB Conc 33.3 % (32.0-36.0); Mean Corpuscular Hemoglobin 26.9 pg (27.0-34.0); Mean Corpuscular Volume 80.9 fL (80.0-100.0); Mean Platelet Volume 7.4 fL (7.0-11.0); Mono # (Auto) 0.3 th/mm3 (0.0-0.9); Mono % (Auto) 7.6 % (0.0-8.0); Neut # (Auto) 3.5 th/mm3 (1.8-7.7); Neut % (Auto) 83.6 % (16.0-70.0); Platelet Count 319 th/mm3 (150-450); Red Blood Count 3.13 mil/mm3 (4.50-5.90); White Blood Count 4.2 th/mm3 (4.0-11.0)
[2018-02-22 05:19] LABS: Alanine Aminotransferase 13 U/L (12-78); Albumin 2.7 g/dL (3.4-5.0); Anion Gap 11 meq/L (5-15); Aspartate Aminotransferase 9 U/L (15-37); Blood Urea Nitrogen 15 mg/dL (7-18); Calcium 8.6 mg/dL (8.5-10.1); Carbon Dioxide 25.6 meq/L (21.0-32.0); Chloride 104 meq/L (98-107); Glomerular Filtration Rate Greater Than 89 mL/min (>89); Glucose,Random 119 mg/dL (74-106); Potassium 3.6 meq/L (3.5-5.1); Sodium 141 meq/L (136-145)
[2018-02-22 05:22] LABS: Alkaline Phosphatase 76 U/L (45-117); Total Protein 5.9 g/dL (6.4-8.2)
[2018-02-22] MEDS: Budesonide-Formoterol 160/4.5 MCG 6 GM Inhaler INH SCH (08:38)
[2018-02-22] MEDS: guaiFENesin 600 MG ER Tablet PO SCH (08:39)
[2018-02-22] MEDS: Senna/Docusate Sodium 8.6/50 MG Tablet PO SCH (08:39)
--- NOTE | 2018-02-22 09:59 | P.PNGI ---
Subjective Interval history: Pt walking around room with IV pole. States no BM in three days. Denies nausea, vomiting. Complaining of back pain, denies abdominal pain. Denies odynophagia and dysphagia. Tolerating PO. <Jacy Gonzalez - Last Filed: 02/22/18 10:47> Interval history: EGD biopsies -ve for malignancy. EUS recommended can be done as outpatient with Dr Gaona. GI will sign off, fu with gi in 1 week to schedule EUS. Thank you <Mona Higginbotham - Last Filed: 02/22/18 15:52> Physical Exam Vital signs: Vital Signs 02/21/18 10:38 02/21/18 11:42 02/21/18 13:05 Temperature 97.8 F Pulse Rate 57 L 66 85 Respiratory Rate 22 18 Blood Pressure 129/59 L 119/64 Pulse Oximetry 99 97 02/21/18 13:21 02/21/18 15:19 02/21/18 16:00 Temperature 97.7 F 97.6 F Pulse Rate 77 89 76 Respiratory Rate 18 16 17 Blood Pressure 139/66 118/63 Pulse Oximetry 95 94 L 02/21/18 20:00 02/21/18 20:37 02/22/18 00:00 Temperature 98.0 F 97.9 F Pulse Rate 60 66 75 Respiratory Rate 19 16 18 Blood Pressure 136/64 132/60 Pulse Oximetry 95 98 98 02/22/18 03:58 02/22/18 08:00 Temperature 98.0 F Pulse Rate 76 65 Respiratory Rate 18 17 Blood Pressure 143/64 H Pulse Oximetry 99 95 Intake & Output 02/21/18 02/22/18 02/22/18 18:59 06:59 18:59 Intake Total 1000 / 1000 1760 / 1760 0 / 0 Balance 1000 / 1000 1760 / 1760 0 / 0 Weight 56 kg Intake: IV 1000 / 1000 1000 / 1000 0 / 0 NS Inj 1,000 ML @ 100 mls/hr IV 1000 / 1000 1000 / 1000 0 / 0 .CONT .Q10H YANN Rx#:[id number] Oral 760 / 760 Other: # Voids 3 Date of Last Bowel Movement 02/20/18 - Constitutional no acute distress - Routine HEENT Exam Head: Present: normocephalic, atraumatic - Routine Respiratory Exam Absent: accessory muscle use - Routine Abdominal Exam Present: soft, normoactive bowel sounds. Absent: tenderness, distended - Routine Skin Exam Present: dry, warm - Routine Neurological Exam Present: alert, oriented X3 <Floyd Gonzalezsey - Last Filed: 02/22/18 10:47> Vital signs: Vital Signs 02/21/18 16:00 02/21/18 20:00 02/21/18 20:37 Temperature 97.6 F 98.0 F Pulse Rate 76 60 66 Respiratory Rate 17 19 16 Blood Pressure 118/63 136/64 Pulse Oximetry 94 L 95 98 02/22/18 00:00 02/22/18 03:58 02/22/18 08:00 Temperature 97.9 F 98.0 F Pulse Rate 75 76 65 Respiratory Rate 18 18 17 Blood Pressure 132/60 143/64 H Pulse Oximetry 98 99 95 02/22/18 10:08 02/22/18 11:51 Temperature 97.6 F Pulse Rate 76 70 Respiratory Rate 15 17 Blood Pressure 120/59 L Pulse Oximetry 98 93 L Intake & Output 02/21/18 02/22/18 02/22/18 18:59 06:59 18:59 Intake Total 1000 / 1000 1760 / 1760 1000 / 1000 Balance 1000 / 1000 1760 / 1760 1000 / 1000 Weight 56 kg Intake: IV 1000 / 1000 1000 / 1000 1000 / 1000 NS Inj 1,000 ML @ 100 mls/hr IV 1000 / 1000 1000 / 1000 1000 / 1000 .CONT .Q10H YANN Rx#:[id number] Oral 760 / 760 Other: # Voids 3 Date of Last Bowel Movement 02/20/18 <Mona Higginbotham - Last Filed: 02/22/18 15:52> Results - Labs CBC & Chem 7: 02/22/18 04:11 02/22/18 04:11 Laboratory Results - last 24 hr 02/22/18 02/22/18 04:11 04:11 WBC 4.2 RBC 3.13 L Hgb 8.4 L Hct 25.3 L MCV 80.9 MCH 26.9 L MCHC 33.3 RDW 19.0 H Plt Count 319 MPV 7.4 Neut % (Auto) 83.6 H Lymph % (Auto) 8.6 L [place] % (Auto) 7.6 Eos % (Auto) 0.1 Baso % (Auto) 0.1 Neut # (Auto) 3.5 Lymph # (Auto) 0.4 L [place] # (Auto) 0.3 Eos # (Auto) 0.0 Baso # (Auto) 0.0 WBC Differential . Differential Comment Auto diff final Sodium 141 Potassium 3.6 Chloride 104 Carbon Dioxide 25.6 Anion Gap 11 BUN 15 Creatinine 0.76 Estimated GFR Greater than 89 Random Glucose 119 H Calcium 8.6 Total Bilirubin 0.5 AST 9 L ALT 13 Alkaline Phosphatase 76 Total Protein 5.9 L Albumin 2.7 L <Jacy Gonzalez - Last Filed: 02/22/18 10:47> - Labs CBC & Chem 7: 02/22/18 04:11 02/22/18 04:11 Laboratory Results - last 24 hr 02/22/18 02/22/18 02/22/18 04:11 04:11 10:35 WBC 4.2 RBC 3.13 L Hgb 8.4 L Hct 25.3 L MCV 80.9 MCH 26.9 L MCHC 33.3 RDW 19.0 H Plt Count 319 MPV 7.4 Neut % (Auto) 83.6 H Lymph % (Auto) 8.6 L [place] % (Auto) 7.6 Eos % (Auto) 0.1 Baso % (Auto) 0.1 Neut # (Auto) 3.5 Lymph # (Auto) 0.4 L [place] # (Auto) 0.3 Eos # (Auto) 0.0 Baso # (Auto) 0.0 WBC Differential . 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 CT abdomen and pelvis W IV contrast (02/20) 1.6 cm mass anterior to the GE junction suspicious for an enlarged lymph node. Possible concentric thickening of the GE junction; recommend direct characterization with endoscopy to evaluate for possible mass. 4 mm low-density lesion in the dome of the liver is too small to further characterize. EGD (02/20) There was [place] Class B esophagitis noted; multiple biopsies were performed. There was erythematous gastritis in the gastric antrum; biopsy was performed. Duodenal inflammation was found in the duodenal bulb Biopsy (antrum) features consistent with chemical gastropathy as may be seen with bile reflux, NSAIDs or other drug induced disease, negative for intestinal metaplasia and dysplasia (distal esophagus) moderate acute and chronic inflammatory changes consistent with reflux negative for intestinal metaplasia and dysplasia Plan: Protonix AFP Imaging concerning for mass adjacent to esophagus EUS can be done outpatient for further evaluation Our service will sign off, please reconsult as needed Have pt follow up with GI after DC Pt has been seen and examined by myself and Dr. Higginbotham and this note is written on his behalf <Jacy Gonzalez - Last Filed: 02/22/18 10:47>
--- NOTE | 2018-02-22 11:33 | P.PN ---
Subjective Interval history: Patient doing well, reports that he is tolerating PO, voiding/stooling. Denies bloody stools. He is very thankful that he is getting good care while here, he also reports that he has spoken to non-human beings from space and that he feels at peace, he has met God before in other states that he has visited. No other concerns, denies S/H ideation. Physical Exam Vital signs: Vital Signs 02/21/18 11:42 02/21/18 13:05 02/21/18 13:21 Temperature 97.8 F 97.7 F Pulse Rate 66 85 77 Respiratory Rate 18 18 Blood Pressure 129/59 L 119/64 139/66 Pulse Oximetry 97 95 02/21/18 15:19 02/21/18 16:00 02/21/18 20:00 Temperature 97.6 F 98.0 F Pulse Rate 89 76 60 Respiratory Rate 16 17 19 Blood Pressure 118/63 136/64 Pulse Oximetry 94 L 95 02/21/18 20:37 02/22/18 00:00 02/22/18 03:58 Temperature 97.9 F Pulse Rate 66 75 76 Respiratory Rate 16 18 18 Blood Pressure 132/60 Pulse Oximetry 98 98 99 02/22/18 08:00 02/22/18 10:08 Temperature 98.0 F Pulse Rate 65 76 Respiratory Rate 17 15 Blood Pressure 143/64 H Pulse Oximetry 95 98 Intake & Output 02/21/18 02/22/18 02/22/18 18:59 06:59 18:59 Intake Total 1000 / 1000 1760 / 1760 0 / 0 Balance 1000 / 1000 1760 / 1760 0 / 0 Weight 56 kg Intake: IV 1000 / 1000 1000 / 1000 0 / 0 NS Inj 1,000 ML @ 100 mls/hr IV 1000 / 1000 1000 / 1000 0 / 0 .CONT .Q10H YANN Rx#:[id number] Oral 760 / 760 Other: # Voids 3 Date of Last Bowel Movement 02/20/18 Narrative: GENERAL: thin, male, in NAD SKIN: Warm and dry. HEENT: Normocephalic. No scleral icterus. No injection or drainage. MOM, poor dentition. NECK: Supple, trachea midline. No JVD or lymphadenopathy. CARDIOVASCULAR: Regular rate and rhythm without murmurs, gallops, or rubs. RESPIRATORY: Mild exp. wheezing BL. No accessory muscle use. GASTROINTESTINAL: Abdomen soft, non-tender, nondistended. MUSCULOSKELETAL: No cyanosis, or edema. BACK: Nontender without obvious deformity. No CVA tenderness. PSYCH: loose associations, grandiose thinking, speaking of terrestial beings that he interacts with, pleasant, AAOx3 Results - Labs CBC & Chem 7: 02/22/18 04:11 02/22/18 04:11 Laboratory Results - last 24 hr 02/22/18 02/22/18 04:11 04:11 WBC 4.2 RBC 3.13 L Hgb 8.4 L Hct 25.3 L MCV 80.9 MCH 26.9 L MCHC 33.3 RDW 19.0 H Plt Count 319 MPV 7.4 Neut % (Auto) 83.6 H Lymph % (Auto) 8.6 L [place] % (Auto) 7.6 Eos % (Auto) 0.1 Baso % (Auto) 0.1 Neut # (Auto) 3.5 Lymph # (Auto) 0.4 L [place] # (Auto) 0.3 Eos # (Auto) 0.0 Baso # (Auto) 0.0 WBC Differential . Differential Comment Auto diff final Sodium 141 Potassium 3.6 Chloride 104 Carbon Dioxide 25.6 Anion Gap 11 BUN 15 Creatinine 0.76 Estimated GFR Greater than 89 Random Glucose 119 H Calcium 8.6 Total Bilirubin 0.5 AST 9 L ALT 13 Alkaline Phosphatase 76 Total Protein 5.9 L Albumin 2.7 L - Imaging Abdomen/Pelvis CT 02/20/18 00:00 CONCLUSION: 1. 1.6 cm mass anterior to the GE junction suspicious for an enlarged lymph node. 2. Possible concentric thickening of the GE junction; recommend direct characterization with endoscopy to evaluate for possible mass. 3. 4 mm low-density lesion in the dome of the liver is too small to further characterize. Assessment and Plan - Assessment (1) COPD exacerbation Code(s): J44.1 - Chronic obstructive pulmonary disease with (acute) exacerbation Status: Acute (2) CAD (coronary artery disease) Code(s): I25.10 - Atherosclerotic heart disease of [place] coronary artery without angina pectoris Status: Chronic (3) History of heart artery stent Code(s): Z95.5 - Presence of coronary angioplasty implant and graft Status: Chronic (4) Tobacco abuse Code(s): Z72.0 - Tobacco use Status: Acute - Plan This is a 62-year-old male CM with hx of CAD s/p stent 2 months ago on Palvix, who presented to the ED for shortness of breath x2 days and admitted for COPD exacerbation, per CTA also with possible esophageal/gastric malignancy and admitted for further mgmt, HD#2 1. COPD Exacerbation, improving -stable on RA -Continue Bronchodilator, Mucolytic and Incentive spirometry, prednisone to 20 mg daily for five days. 2. Smoker: encouraged cessation, risks discussed. 3. CAD s/p stent: advised importance on being on the Plavix Rx after his [place] a few months ago, patient reports he is noncompliant due to med costs. 4. 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 transfusion months ago but he cannot remember what state this occurred in -s/p EGD on 02/20 pending bx results -with diagnosis of Esophageal mass seen on imaging study, had an EGD there was [place] Class B esophagitis multiple biopsies performed, Duodenal inflammation found in the duodenal bulb, biopsy of the antrum, consistent with chemical gastropathy as may be seen with bile reflux, NSAIDs or other drug induced disease, negative for intestinal metaplasia and dysplasia (distal esophagus) moderate acute and chronic inflammatory changes consistent with reflux negative for intestinal metaplasia and dysplasia recommended PPIs. EUS as outpatient. signed off the case by now. follow after discharge with Doctor Mona Higginbotham. CTA CHEST 02/19: 1. No pulmonary embolus. 2. 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 3. Moderate emphysema. No pulmonary mass or infiltrate. CT ABD: 1. 1.6 cm mass anterior to the GE junction suspicious for an enlarged lymph node. 2. Possible concentric thickening of the GE junction; recommend direct characterization with endoscopy to evaluate for possible mass. 3. 4 mm low-density lesion in the dome of the liver is too small to further characterize. 5. Anemia: Hgb 8.3 from 8.5, asymptomatic, Rx FeSulfate, F/U in AM. 6. DVT PPX: SCD's 7. Case mgmt consulted due to homelessness/assistance with D/C once stable 8. Acute Psychosis discussed with Psychiatry specialist Doctor Carmine Cao and recommended for inpatient admission at this time will go to 2700 Code Status: Full Code Discussed Condition With: Patient and Nurse Miss Ford and Psychiatry specialist Doctor Carmine Cao. Discharge Planning: Discharge to inpatient Psychiatric unit as per Doctor Cao.
--- NOTE | 2018-02-22 11:46 | P.DS ---
Date of admission: 02/19/18 14:46 Primary care physician: No Primary Care Physician Attending physician on discharge: Rene Ernandez Anticipated date of discharge: 02/22/18 Brief History from admission: This is a 62-year-old male CM with hx of CAD s/p stent 2 months ago on Palvix, who presented to the ED for shortness of breath x2 days with Hx of COPD. Patient reports that his SOB occurs with minimal exertion, incr. white sputum x7 days with cough. Patient is a poor historian, he is homeless and reports that be cannot afford inhalers for COPD. Patient also reports hx of anemia a few mths ago req. blood transfusion, at the time he was having bright red blood when he wiped after BM's and had an EGD/Colonoscopy that showed gastric polys that according to him were concerning for malignancy. He does not know what state this was done at and he has been in [facility] for 1 wk. he has been homeless for 39yrs, originally from [place] but when he returned home from the [place] in the 's his parents kicked him out and he has been homeless since. He has traveled 47 states in the last 39yrs and stays in different cities for months at a time. Denies CP, weight loss, fever, and chills. Patient is single, has 1 daughter that he is not in contact with, father is and mother is in a SNF in [place], he has no contact with any family members. Of note, patient was admitted for CP rule out on 02/16 with neg nuclear stress test. Also, on and 06/2016 he was seen in the ED for COPD exacerbations per EMR. Patient does not have a PCP. DS: Diagnosis - Discharge Diagnosis (1) COPD exacerbation Status: Acute (2) CAD (coronary artery disease) Status: Chronic (3) History of heart artery stent Status: Chronic (4) Tobacco abuse Status: Acute DS: Summary Hospital Course: Patient doing well, reports that he is tolerating PO, voiding/stooling. Denies bloody stools. He is very thankful that he is getting good care while here, he also reports that he has spoken to non-human beings from space and that he feels at peace, he has met God before in other states that he has visited. No other concerns, denies S/H ideation. Results - Labs CBC & Chem 7: 09/26/18 04:11 02/22/18 04:11 Laboratory Results - last 24 hr 02/22/18 02/22/18 04:11 04:11 WBC 4.2 RBC 3.13 L Hgb 8.4 L Hct 25.3 L MCV 80.9 MCH 26.9 L MCHC 33.3 RDW 19.0 H Plt Count 319 MPV 7.4 Neut % (Auto) 83.6 H Lymph % (Auto) 8.6 L Meriwether % (Auto) 7.6 Eos % (Auto) 0.1 Baso % (Auto) 0.1 Neut # (Auto) 3.5 Lymph # (Auto) 0.4 L Meriwether # (Auto) 0.3 Eos # (Auto) 0.0 Baso # (Auto) 0.0 WBC Differential . Differential Comment Auto diff final Sodium 141 Potassium 3.6 Chloride 104 Carbon Dioxide 25.6 Anion Gap 11 BUN 15 Creatinine 0.76 Estimated GFR Greater than 89 Random Glucose 119 H Calcium 8.6 Total Bilirubin 0.5 AST 9 L ALT 13 Alkaline Phosphatase 76 Total Protein 5.9 L Albumin 2.7 L Assessment and Plan - Assessment (1) COPD exacerbation Code(s): J44.1 - Chronic obstructive pulmonary disease with (acute) exacerbation Status: Acute (2) CAD (coronary artery disease) Code(s): I25.10 - Atherosclerotic heart disease of alga[place] coronary artery without angina pectoris Status: Chronic (3) History of heart artery stent Code(s): Z95.5 - Presence of coronary angioplasty implant and graft Status: Chronic (4) Tobacco abuse Code(s): Z72.0 - Tobacco use Status: Acute - Plan This is a 62-year-old male CM with hx of CAD s/p stent 2 months ago on Palvix, who presented to the ED for shortness of breath x2 days and admitted for COPD exacerbation, per CTA also with possible esophageal/gastric malignancy and admitted for further mgmt, HD#2 1. COPD Exacerbation, improving -stable on RA -Continue Bronchodilator, Mucolytic and Incentive spirometry, prednisone to 20 mg daily for five days. 2. Smoker: encouraged cessation, risks discussed. 3. CAD s/p stent: advised importance on being on the Plavix Rx after his [place] a few months ago, patient reports he is noncompliant due to med costs. 4. 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 transfusion months ago but he cannot remember what state this occurred in -s/p EGD on 02/20 pending bx results -with diagnosis of Esophageal mass seen on imaging study, had an EGD there was LA Class B esophagitis multiple biopsies performed, Duodenal inflammation found in the duodenal bulb, biopsy of the antrum, consistent with chemical gastropathy as may be seen with bile reflux, NSAIDs or other drug induced disease, negative for intestinal metaplasia and dysplasia (distal esophagus) moderate acute and chronic inflammatory changes consistent with reflux negative for intestinal metaplasia and dysplasia recommended PPIs. EUS as outpatient. signed off the case by now. follow after discharge with Doctor Mona Higginbotham. CTA CHEST 02/19: 1. No pulmonary embolus. 2. 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 3. Moderate emphysema. No pulmonary mass or infiltrate. CT ABD: 1. 1.6 cm mass anterior to the GE junction suspicious for an enlarged lymph node. 2. Possible concentric thickening of the GE junction; recommend direct characterization with endoscopy to evaluate for possible mass. 3. 4 mm low-density lesion in the dome of the liver is too small to further characterize. 5. Anemia: Hgb 8.3 from 8.5, asymptomatic, Rx FeSulfate, F/U in AM. 6. DVT PPX: SCD's 7. Case mgmt consulted due to homelessness/assistance with D/C once stable 8. Acute Psychosis discussed with Psychiatry specialist Doctor Carmine Cao and recommended for inpatient admission at this time will go to 2700 Code Status: Full Code Discussed Condition With: Patient and Nurse Miss Ford and Psychiatry specialist Doctor Carmine Cao. Discharge Planning: Discharge to inpatient Psychiatric unit as per Doctor Cao. - Time Spent with Patient Total time spent providing and/or coordinating discharge services: Less than 30 minutes - Quality: VTE Deep Vein Thrombosis/Pulmonary Embolism Present on Admission: No Exam Vital signs: Vital Signs 02/21/18 13:05 02/21/18 13:21 02/21/18 15:19 Temperature 97.7 F Pulse Rate 85 77 89 Respiratory Rate 18 16 Blood Pressure 119/64 139/66 Pulse Oximetry 95 02/21/18 16:00 02/21/18 20:00 02/21/18 20:37 Temperature 97.6 F 98.0 F Pulse Rate 76 60 66 Respiratory Rate 17 19 16 Blood Pressure 118/63 136/64 Pulse Oximetry 94 L 95 98 02/22/18 00:00 02/22/18 03:58 02/22/18 08:00 Temperature 97.9 F 98.0 F Pulse Rate 75 76 65 Respiratory Rate 18 18 17 Blood Pressure 132/60 143/64 H Pulse Oximetry 98 99 95 02/22/18 10:08 Temperature Pulse Rate 76 Respiratory Rate 15 Blood Pressure Pulse Oximetry 98 Intake & Output 02/21/18 02/22/18 02/22/18 18:59 06:59 18:59 Intake Total 1000 / 1000 1760 / 1760 0 / 0 Balance 1000 / 1000 1760 / 1760 0 / 0 Weight 56 kg Intake: IV 1000 / 1000 1000 / 1000 0 / 0 NS Inj 1,000 ML @ 100 mls/hr IV 1000 / 1000 1000 / 1000 0 / 0 .CONT .Q10H Y[facility] Rx#:[id number] Oral 760 / 760 Other: # Voids 3 Date of Last Bowel Movement 02/20/18 Narrative: GENERAL: thin, male, in NAD SKIN: Warm and dry. HEENT: Normocephalic. No scleral icterus. No injection or drainage. MOM, poor dentition. NECK: Supple, trachea midline. No JVD or lymphadenopathy. CARDIOVASCULAR: Regular rate and rhythm without murmurs, gallops, or rubs. RESPIRATORY: Mild exp. wheezing BL. No accessory muscle use. GASTROINTESTINAL: Abdomen soft, non-tender, nondistended. MUSCULOSKELETAL: No cyanosis, or edema. BACK: Nontender without obvious deformity. No CVA tenderness. PSYCH: loose associations, grandiose thinking, speaking of terrestial beings that he interacts with, pleasant, AAOx3 Results Procedures completed during hospitalization: EGD Labs on day of discharge: Labs from last 24 hours 02/22/18 02/22/18 04:11 04:11 WBC 4.2 RBC 3.13 L Hgb 8.4 L Hct 25.3 L MCV 80.9 MCH 26.9 L MCHC 33.3 RDW 19.0 H Plt Count 319 MPV 7.4 Neut % (Auto) 83.6 H Lymph % (Auto) 8.6 L Meriwether % (Auto) 7.6 Eos % (Auto) 0.1 Baso % (Auto) 0.1 Neut # (Auto) 3.5 Lymph # (Auto) 0.4 L Meriwether # (Auto) 0.3 Eos # (Auto) 0.0 Baso # (Auto) 0.0 WBC Differential . Differential Comment Auto diff final Sodium 141 Potassium 3.6 Chloride 104 Carbon Dioxide 25.6 Anion Gap 11 BUN 15 Creatinine 0.76 Estimated GFR Greater than 89 Random Glucose 119 H Calcium 8.6 Total Bilirubin 0.5 AST 9 L ALT 13 Alkaline Phosphatase 76 Total Protein 5.9 L Albumin 2.7 L - Impressions ITS Impressions Chest CTA 02/19/18 03:41 CONCLUSION: 1. No pulmonary embolus. 2. 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 3. Moderate emphysema. No pulmonary mass or infiltrate. Abdomen/Pelvis CT 02/20/18 00:00 CONCLUSION: 1. 1.6 cm mass anterior to the GE junction suspicious for an enlarged lymph node. 2. Possible concentric thickening of the GE junction; recommend direct characterization with endoscopy to evaluate for possible mass. 3. 4 mm low-density lesion in the dome of the liver is too small to further characterize. Discharge Plan - Discharge Disposition Patient Disposition: 67 Disc To [facility] - Discharge Condition Condition: Fair - Discharge Order Discharge Orders: Discharge Order (Routine); Ordered 02/22/18 Ordered By: Rene Ernandez - Discharge Details Anticipated Discharge Date: 02/22/18 Discharge Comment: per Psychiatri specialist. - Physicians Team Primary Care Provider: Primary Care Physici,No Attending Provider: Rene Ernandez Other Providers: Ernesto Gaona MD ; Carmine Coa MD
[2018-02-22 11:52] VITALS: RESP 17; TEMP 97.6
[2018-02-22] MEDS: Ferrous Sulfate 325 MG Tablet PO SCH (12:00)
--- NOTE | 2018-02-22 14:24 | P.CONPSY ---
Provisional Diagnosis Admission Date: February 19, 2018 14:46 [place] I.: Unspecified psychosis, R/O bipolar disorder, manic episode, with psychotic features vs schizoaffective disorder, bipolar type History of Present Illness Service: Medicine Primary Care Provider: No Primary Care Physician Family Provider: No Primary Care Physician Chief Complaint: SOB History of Present Illness: The patient is a 62-year-old man, homeless, unemployed, single, supported by [facility], he denies previous psychiatric history, denies previous suicide attempts, denies psychiatric hospitalizations, with medical history COPD , anemia, CM with hx of CAD s/p stent 2 months ago on Palvix, who was admitted through to the ED for shortness of breath x2 days. Patient reports that his SOB occurs with minimal exertion, incr. white sputum x7 days with cough. Patient is a poor historian, he is homeless and reports that be cannot afford inhalers for COPD. Patient also reports hx of anemia a few mths ago req. blood transfusion, at the time he was having bright red blood when he wiped after BM's and had an EGD/Colonoscopy that showed gastric polys that according to him were concerning for malignancy. The patient is now medically stable, he has been recommended to continue medical follow-up as an outpatient. He has been consulted to me due to disorganized and bizarre speech. Chart was reviewed. Case was widely discussed with primary medical team and nursing staff. On my psychiatric evaluation today I find a patient in his bed, when I enter in the room the patient was talking to himself, but in general he was initially calm and cooperative. The patient is very hyperverbal, and at times because of quite pleasure. He says that he has been cleaning his room over and over since yesterday because he is going to be discharge he does not want to leave his room dirty. Patient reports that last night he did not sleep, he says that he has a lot of energy he does not want to waste his time sleeping. He says that he has being living "the Bible scriptures and Gods wish", and he has been instructed "by the high-power" to be denies with people and to clean. At times the patient is a pressure that is difficult to follow and difficult to redirect. He reports happy mood, even though he is irritable, has a prominent expansive affect, labile at times, tangential, with pavan loosening of associations. The patient is fully oriented x3, no attention deficit, no filtration of consciousness at the moment. He denies suicidal and homicidal ideation, denies visual and auditory hallucinations. As per nurse in charge, the patient has been acting very bizarre, talking to himself, at times has being verbally aggressive with her, no making sense, "with a very rapid and disorganized language". Patient clarifies that he has never seen a psychiatrist , but he does not need to take psychiatric medications, he became very upset when I told him that I was considering a psychiatric hospitalization for him. PPHx: No psychiatric history, no previous suicidal attempts, no psychotropic medication PMHx: COPD, CAD, anemia Substance Hx: Patient denies history of alcohol and illegal drug use Family Hx: Denies family psychiatric history Social Hx: The patient was born and raised in [place], he is homeless in the [facility], unemployed, single, supported by [facility], his highest level of education is some college [employer] - History History Provided By: Patient - Medical History Medical History: Medical History (Last Reviewed 02/19/18 @ 09:03 by Grisel Guerra MD) Asthma COPD (chronic obstructive pulmonary disease) Recent heart attack - Surgical History Surgical History: Surgical History (Last Reviewed 02/19/18 @ 09:03 by Grisel Guerra MD) Stented coronary artery - Family History Family History: Family History (Last Updated 02/19/18 @ 09:03 by Grisel Guerra MD) Other No pertinent family history - Tobacco History Second Hand Smoke Exposure: Yes Tobacco Use In Past 30 Days: Yes Smoking Status: Current every day smoker Tobacco Type: Cigarettes Packs Per Day: 1 - Alcohol History How Often Do You Have a Drink Containing Alcohol: Never - Substance Use History Substance History: No History of Abuse - Travel History History of Recent Travel: Yes (travels from state to state) Recent Travel in the [place] Within the Last 8 Weeks: Yes Recent Travel Out of the Country Within the Last 8 Weeks: No - Immunization History Tetanus Immunization: Unsure Hx Influenza Vaccine This Season: No Medications and Allergies Active Medications: Active Medications Acetaminophen (Tylenol) 650 mg PO Q4H PRN PRN Reason: Temp > 100.4 Al Hydroxide/Mg Hydroxide (Milk Of Magnesia Liq) 30 ml PO Q12H PRN PRN Reason: Mild Constipation Albuterol (Duoneb Neb (Prn)) 1 ampul NEB Q2HR NEB PRN PRN Reason: SOB/WHEEZING Last Admin: 02/21/18 05:08 Dose: 1 ampul Albuterol (Duoneb Neb (Annette)) 1 ampul NEB Q6HR NEB [facility] Last Admin: 02/22/18 10:07 Dose: 1 ampul Bisacodyl (Dulcolax Supp) 10 mg RECTAL DAILY PRN PRN Reason: SEVERE CONSITIPATION Budesonide/Formoterol Fumarate (Symbicort 160/4.5 Mcg Inh) 2 puff INH BID [facility] Last Admin: 02/22/18 08:38 Dose: 2 puff Doxycycline Hyclate (Vibramycin) 100 mg PO Q12HR [facility] Last Admin: 02/22/18 08:39 Dose: 100 mg Ferrous Sulfate (Ferosul) 325 mg PO BID@1200,1700 [facility] Last Admin: 02/21/18 17:06 Dose: 325 mg Guaifenesin (Mucinex Er) 600 mg PO BID [facility] Last Admin: 02/22/18 08:39 Dose: 600 mg Sodium Chloride (Ns Inj) 1,000 mls @ 100 mls/hr IV.CONT .Q10H [facility] Last Infusion: 02/22/18 08:47 Dose: 100 mls/hr Sodium Chloride (Ns Inj) 500 mls @ 30 mls/hr IV.SIG .Q10H [facility] Last Admin: 02/20/18 11:50 Dose: Not Given Lactulose (Lactulose Liq) 30 ml PO DAILY PRN PRN Reason: SEVERE CONSITIPATION Methylprednisolone Sodium Succinate (Solumedrol Inj) 40 mg IV.PUSH Q6H [facility] Last Admin: 02/22/18 08:39 Dose: 40 mg Morphine Sulfate (Morphine Inj) 2 mg IV.PUSH Q4H PRN PRN Reason: PAIN 6-10 Last Admin: 02/22/18 08:40 Dose: 2 mg Ondansetron HCl (Zofran Inj) 4 mg IV.PUSH Q6H PRN PRN Reason: NAUSEA OR VOMITING Pantoprazole Sodium (Protonix Inj) 40 mg IV.PUSH Q12H [facility] Last Admin: 02/21/18 22:02 Dose: 40 mg Senna/Docusate Sodium (Eugenie-Colace) 1 tab PO BID [facility] Last Admin: 02/22/18 08:39 Dose: 1 tab Sennosides (Senokot) 17.2 mg PO Q12H PRN PRN Reason: Moderate Constipation Allergies Allergy/AdvReac Type Severity Reaction Status Date / Time penicillin G Allergy Intermediate Rash Verified 02/19/18 03:40 Exam Vital signs: Vital Signs 02/21/18 15:19 02/21/18 16:00 02/21/18 20:00 Temperature 97.6 F 98.0 F Pulse Rate 89 76 60 Respiratory Rate 16 17 19 Blood Pressure 118/63 136/64 Pulse Oximetry 94 L 95 02/21/18 20:37 02/22/18 00:00 02/22/18 03:58 Temperature 97.9 F Pulse Rate 66 75 76 Respiratory Rate 16 18 18 Blood Pressure 132/60 Pulse Oximetry 98 98 99 02/22/18 08:00 02/22/18 10:08 02/22/18 11:51 Temperature 98.0 F 97.6 F Pulse Rate 65 76 70 Respiratory Rate 17 15 17 Blood Pressure 143/64 H 120/59 L Pulse Oximetry 95 98 93 L Intake & Output 02/21/18 02/22/18 02/22/18 18:59 06:59 18:59 Intake Total 1000 / 1000 1760 / 1760 0 / 0 Balance 1000 / 1000 1760 / 1760 0 / 0 Weight 56 kg Intake: IV 1000 / 1000 1000 / 1000 0 / 0 NS Inj 1,000 ML @ 100 mls/hr IV 1000 / 1000 1000 / 1000 0 / 0 .CONT .Q10H [facility] Rx#:[id number] Oral 760 / 760 Other: # Voids 3 Date of Last Bowel Movement 02/20/18 Narrative: Hyperactive, hypertalkative, but no tremors, no EPS, no catatonia, no gait disturbance Assessment and Plan - Assessment (1) Unspecified psychosis Code(s): F29 - Unspecified psychosis not due to a substance or known physiological condition Status: Acute - Plan Plan: Estimated LOS: [] days On psychiatric evaluation today the patient presents irritable, increased verbal production, at times pressure and incoherent, disorganized, tangential with loosening of associations, very difficult to redirect. At some point of the evaluation the patient becomes oppositional and verbally abusive with me. As per nurses the patient has been acting bizarre, hyperactive, talking about cleaning his hospital room sleeping very poorly, disorganized. The patient seems to have goal-directed activities, he is hyperactive, with a very expansive affect, however he denies suicidal and homicidal ideation, denies visual and auditory hallucinations. The patient has been keeping his room closed, insisting having his courting close suggesting that patient may be also be paranoid. The patient denies previous psychiatric hospitalizations, he denies suicidal attempts, he denies being in psychotropics. He denies the use of illegal drugs or alcohol. Patient seems to be acutely manic/delusional. I will go ahead and Hardwick act him. He would be admitted in psychiatry for stabilization and safety. We will start Seroquel 50 mg twice daily for mood stabilization. Collateral information is crucial to investigate if patient has a previous psychiatric history. Transfer to psychiatry was medically appropriate. Justification for Continued Inpatient Stay: Patient is for psychiatric admission.
[2018-02-22] MEDS: Pantoprazole Inj 40 MG Vial IV.PUSH SCH (14:38)
[2018-02-22 16:10] VITALS: BP 139/69; PULSE 76; O2SAT 97
== END 2018-02-22 16:55 ==
LOC: NEDA 03:21 → NEPC 03:21 → NEPFCDU 08:19 → N07 02-21 13:13
PROVIDERS: ADMIT Internal Medicine; ATTEND Internal Medicine

== ENCOUNTER 2018-02-22 13:54 | Inpatient (IN) ==
[2018-02-22] MEDS ORDERED: Bisacodyl 10 MG Supp RECTAL PRN (14:02)
[2018-02-22] MEDS ORDERED: Aluminum/Magnesium/Simethacone Susp 30 ML UDC PO PRN (14:02)
[2018-02-23 06:58] LABS: Anion Gap 7 meq/L (5-15); Blood Urea Nitrogen 23 mg/dL (7-18); Calcium 8.4 mg/dL (8.5-10.1); Carbon Dioxide 29.3 meq/L (21.0-32.0); Chloride 107 meq/L (98-107); Cholesterol 170 mg/dL (120-200); Glomerular Filtration Rate Greater Than 89 mL/min (>89); Glucose,Random 75 mg/dL (74-106); Potassium 3.4 meq/L (3.5-5.1); Sodium 143 meq/L (136-145); Triglycerides 74 mg/dL (42-150)
[2018-02-23 07:00] LABS: Chol/HDL Ratio 2.31 Ratio; HDL Cholesterol 73.5 mg/dL (40.0-60.0); LDL Cholesterol,Calculated 82 mg/dL (0-99)
[2018-02-23] MEDS: Senna/Docusate Sodium 8.6/50 MG Tablet PO SCH ×2 (08:48→21:18)
[2018-02-23 16:17] LABS: Hemoglobin A1c 6.3 % (4.3-6.0)
[2018-02-23] MEDS ORDERED: Acetaminophen 325 MG Tablet PO PRN (16:33)
--- NOTE | 2018-02-23 16:42 | P.PNPSY ---
Subjective Remarks: Patient was initially seen yesterday in consultation on the medical floor this patient being treated for various MedSurg issues. At that time Dr. Mcgregor initiated the Hardwick act on him due to his psychosis intrusive demanding and intimidating behavior. Patient has been medically cleared and transferred to this unit. I have visited with patient with medical student Maricel Choi patient remains hyperverbal with rapid pressured speech is somewhat disorganized confused tangential and circumstantial. At this time I feel he does not meet Hardwick criteria thus I will do first opinion petition supporting Hardwick act request second opinion petition I feel he may have capacity to sign for his medications Dr. Mcgregor recommended Seroquel 50 mg twice daily I agree at this time. We will also have the hospitalist continue their follow-up with him he is on multiple medical medications that need appropriate monitoring Review of Systems All other systems reviewed negative except as stated in HPI Mental Status Examination Appearance: Disheveled Consciousness: Alert Orientation: Person, Place, Date/Time Motor Activity: Normal gait Speech: Pressured, Rapid Language: Adequate Fund of Knowledge: Inadequate Attention and Concentration: Easily distracted Memory: Impaired Mood: Anxious, Irritable, Manic Affect: Other (Increased range and intensity) Thought Process & Associations: Disorganized Thought Content: Ideas of reference Hallucination Type: None Delusion Type: Paranoid Suicidal Ideation: No Suicidal Plan: No Suicidal Intention: No Homicidal Ideation: No Homicidal Plan: No Homicidal Intention: No Insight: Poor Judgment: Poor Assessment and Plan - Assessment (1) Brief psychotic disorder Code(s): F23 - Brief psychotic disorder Status: Acute - Plan Plan: Patient remained psychotic with manic behaviors. At this time he meets Hardwick criteria thus I will do first opinion petition supporting Hardwick act. We will start him on Seroquel 50 mg twice daily. We will the hospitalist consult will us Justification for Continued Inpatient Stay: At this time patient would decompensate a place to a lower level of care Discharge Planning: To be determined. Patient states he has been homeless for 39 years. Request Healthcare Surrogate/Guardian Advocate?: No
[2018-02-23] MEDS: QUEtiapine 25 MG Tablet PO SCH (21:18)
[2018-02-23] MEDS: Ferrous Sulfate 325 MG Tablet PO SCH (21:21)
[2018-02-23] MEDS: Budesonide-Formoterol 160/4.5 MCG 6 GM Inhaler INH SCH (23:40)
[2018-02-24] MEDS: Senna/Docusate Sodium 8.6/50 MG Tablet PO SCH ×3 (03:32→20:49)
--- NOTE | 2018-02-24 07:25 | P.HPPSY ---
Provisional Diagnosis Admission Date: February 22, 2018 17:05 [place] I.: Unspecified psychosis Competence Certification of Person's Competence To Provide Express and Informed Consent I have personally examined [place] Baird, a person being served at [facility] on, February 24, 2018 0721. Express and informed consent means consent voluntarily given in writing, by a competent person, after sufficient explanation and disclosure of the subject matter involved to enable the person to make a knowing and willful decision without any element of force, fraud, deceit, duress, or other form of constraint or coercion. This person is 18 years of age or older, is not now known to be incompetent to consent to treatment with a guardian advocate, and does not have a health care surrogate or proxy currently making medical treatment decisions. I have found this person to be one of the following: [] Competent to provide express and informed consent, as defined above, for voluntary admission to this facility and is competent to provide express and informed consent for treatment. He/she has the consistent capacity to make well reasoned, willful, and knowing decisions concerning his or her medical or mental health treatment. The person fully and consistently understands the purpose of the admission for examination/placement and is fully capable of personally exercising all rights assured [place] [] Incompetent to provide express and informed consent to voluntary admission, and this is incompetent to provide express and informed consent to treatment. The person must be transferred to involuntary status and a petition for a guardian advocate filed with the Circuit Court. [x] Refusing to provide express and informed consent to voluntary admission but is competent to provide express and informed consent for treatment. The person must be discharged or transferred to involuntary status. Form shall be completed within 24 hours of a person's arrival at the receiving facility and filed in the clinical record of each person: 1. Admitted on a voluntary basis 2. Permitted to provide express and informed consent to his/her own treatment 3. Allowed to transfer from involuntary to voluntary status 4. Prior to permitting a person to consent to his or her own treatment after having been previously found incompetent to consent to treatment. History of Present Illness Capacity: Has capacity History of Present Illness: Late entry. The patient was seen 02/22 2018 The patient is a 62-year-old man, homeless, unemployed, single, supported by SSI, he denies previous psychiatric history, denies previous suicide attempts, denies psychiatric hospitalizations, with medical history COPD , anemia, CM with hx of CAD s/p stent 2 months ago on Palvix, who was admitted through to the ED for shortness of breath x2 days. Patient reports that his SOB occurs with minimal exertion, incr. white sputum x7 days with cough. Patient is a poor historian, he is homeless and reports that be cannot afford inhalers for COPD. Patient also reports hx of anemia a few mths ago req. blood transfusion, at the time he was having bright red blood when he wiped after BM's and had an EGD/Colonoscopy that showed gastric polys that according to him were concerning for malignancy. The patient is now medically stable, he has been recommended to continue medical follow-up as an outpatient. He has been consulted to me due to disorganized and bizarre speech. Chart was reviewed. Case was widely discussed with primary medical team and nursing staff. On my psychiatric evaluation today I find a patient in his bed, when I enter in the room the patient was talking to himself, but in general he was initially calm and cooperative. The patient is very hyperverbal, and at times because of quite pleasure. He says that he has been cleaning his room over and over since yesterday because he is going to be discharge he does not want to leave his room dirty. Patient reports that last night he did not sleep, he says that he has a lot of energy he does not want to waste his time sleeping. He says that he has being living "the Bible scriptures and Gods wish", and he has been instructed "by the high-power" to be denies with people and to clean. At times the patient is a pressure that is difficult to follow and difficult to redirect. He reports happy mood, even though he is irritable, has a prominent expansive affect, labile at times, tangential, with pavan loosening of associations. The patient is fully oriented x3, no attention deficit, no filtration of consciousness at the moment. He denies suicidal and homicidal ideation, denies visual and auditory hallucinations. As per nurse in charge, the patient has been acting very bizarre, talking to himself, at times has being verbally aggressive with her, no making sense, "with a very rapid and disorganized language". Patient clarifies that he has never seen a psychiatrist , but he does not need to take psychiatric medications, he became very upset when I told him that I was considering a psychiatric hospitalization for him. PPHx: No psychiatric history, no previous suicidal attempts, no psychotropic medication PMHx: COPD, CAD, anemia Substance Hx: Patient denies history of alcohol and illegal drug use Family Hx: Denies family psychiatric history Social Hx: The patient was born and raised in [place], he is homeless in the [facility], unemployed, single, supported by [facility], his highest level of education is some college - Inpatient Certification I certify that the inpatient services were ordered in accordance with Medicare regulations governing the order. This includes certification that hospital inpatient services are reasonable and necessary and in the case of services not specified as inpatient-only under 42 CFR 419.22(n), that they are appropriately provided as inpatient services in accordance to with the 2-midnight benchmark under 43 CFR 412.3(e) I certify that inpatient psychiatric hospital services are medically necessary. Evaluation and treatment and/or diagnostic testing are expected to improve the patient's condition. The patient needs on a daily basis, active treatment furnished directly by or requiring the supervision of inpatient psychiatric facility personnel. Estimated Total Length of Stay (Days): 7 Plans for Post Hospital Care: Home Review of Systems All other systems reviewed negative except as stated in HPI Psychiatric: Reports confusion, Reports irritability, Reports paranoia PMFSH - History History Provided By: Patient - Medical History Medical History: Medical History (Last Reviewed 02/19/18 @ 09:03 by Grisel Guerra MD) Asthma COPD (chronic obstructive pulmonary disease) Recent heart attack - Surgical History Surgical History: Surgical History (Last Reviewed 02/19/18 @ 09:03 by Grisel Guerra MD) Stented coronary artery - Family History Family History: Family History (Last Updated 02/19/18 @ 09:03 by Grisel Guerra MD) Other No pertinent family history - Tobacco History Second Hand Smoke Exposure: No Tobacco Use In Past 30 Days: No Smoking Status: Former smoker Tobacco Type: Cigarettes Packs Per Day: 1 - Alcohol History How Often Do You Have a Drink Containing Alcohol: Never - Substance Use History Substance History: Past History - Substance Use Type Marijuana Status: Early Remission Route Used: Inhalation Reason for Use: Calm Down, Get High Comment: Patient reports past substance abuse, illicit drugs and alcohol, however patient was unwilling to specifiy types of drugs used, when, etc., patient stating that it was "not important" because he no longer uses drugs or alcohol. - Travel History History of Recent Travel: Yes (travel[facility] [place] [facility] [place] [facility]) Medications and Allergies Active Medications: Active Medications Acetaminophen (Tylenol) 650 mg PO Q4H PRN PRN Reason: Pain 1-5 or Temp >101F Al Hydrox/Mg Hydrox/Simethicone (Mag-Al Plus Susp Liq) 30 ml PO Q6H PRN PRN Reason: DYSPEPSIA Al Hydroxide/Mg Hydroxide (Milk Of Magnesia Liq) 30 ml PO Q12H PRN PRN Reason: Mild Constipation Albuterol (Duoneb Neb (Prn)) 1 ampul NEB Q2HR NEB PRN PRN Reason: SOB/WHEEZING Last Admin: 02/22/18 22:09 Dose: 1 ampul Bisacodyl (Dulcolax Supp) 10 mg RECTAL DAILY PRN PRN Reason: SEVERE CONSITIPATION Budesonide/Formoterol Fumarate (Symbicort 160/4.5 Mcg Inh) 2 puff INH BID [facility] Last Admin: 02/23/18 23:40 Dose: 2 puff Diphenhydramine HCl (Benadryl) 50 mg PO HS PRN PRN Reason: INSOMNIA Last Admin: 02/23/18 21:19 Dose: 50 mg Doxycycline Hyclate (Vibramycin) 100 mg PO Q12HR [facility] Last Admin: 02/23/18 21:50 Dose: 100 mg Ferrous Sulfate (Ferosul) 325 mg PO BID@1200,1700 [facility] Last Admin: 02/23/18 21:21 Dose: 325 mg Hydroxyzine HCl (Atarax) 50 mg PO Q6H PRN PRN Reason: ANXIETY Lactulose (Lactulose Liq) 30 ml PO DAILY PRN PRN Reason: SEVERE CONSITIPATION Pantoprazole Sodium (Protonix) 40 mg PO BID [facility] Last Admin: 02/23/18 21:19 Dose: 40 mg Prednisone (Deltasone) 20 mg PO DAILY [facility] Quetiapine Fumarate (Seroquel) 50 mg PO BID [facility] Last Admin: 02/23/18 21:18 Dose: Not Given Senna/Docusate Sodium (Eugenie-Colace) 1 tab PO BID [facility] Last Admin: 02/24/18 03:32 Dose: 1 tab Sennosides (Senokot) 17.2 mg PO Q12H PRN PRN Reason: Moderate Constipation Allergies Allergy/AdvReac Type Severity Reaction Status Date / Time penicillin G Allergy Intermediate Rash Verified 02/19/18 03:40 Results - Labs CBC & Chem 7: 02/23/18 06:03 Labs: Laboratory Results - last 24 hr 02/23/18 06:03 Hemoglobin A1c 6.3 H Exam Vital signs: Vital Signs 02/23/18 17:42 02/24/18 06:00 Temperature 97.2 F L 98.3 F Pulse Rate 74 81 Respiratory Rate 18 18 Blood Pressure 146/67 H 118/69 Pulse Oximetry 97 97 Narrative: No tremors, no EPS, no psychomotor agitation or retardation, - Constitutional mild distress - Routine HEENT Exam Head: Present: normocephalic, atraumatic ENT: Present: mucous membranes moist - Routine Psychiatric Exam Present: paranoid Mental Status Examination Appearance: Disheveled Consciousness: Alert Orientation: Person, Place, Date/Time Motor Activity: Normal gait Speech: Pressured, Rapid Language: Adequate Fund of Knowledge: Inadequate Attention and Concentration: Easily distracted Memory: Impaired Mood: Anxious, Irritable, Manic Affect: Other (Increased range and intensity) Thought Process & Associations: Disorganized Thought Content: Ideas of reference Hallucination Type: None Delusion Type: Paranoid Suicidal Ideation: No Suicidal Plan: No Suicidal Intention: No Homicidal Ideation: No Homicidal Plan: No Homicidal Intention: No Insight: Poor Judgment: Poor Assessment and Plan - Assessment (1) Brief psychotic disorder Code(s): F23 - Brief psychotic disorder Status: Acute (2) Unspecified psychosis Code(s): F29 - Unspecified psychosis not due to a substance or known physiological condition Status: Acute - Plan Plan: On psychiatric evaluation today the patient presents irritable, increased verbal production, at times pressure and incoherent, disorganized, tangential with loosening of associations, very difficult to redirect. At some point of the evaluation the patient becomes oppositional and verbally abusive with me. As per nurses the patient has been acting bizarre, hyperactive, talking about cleaning his hospital room sleeping very poorly, disorganized. The patient seems to have goal-directed activities, he is hyperactive, with a very expansive affect, however he denies suicidal and homicidal ideation, denies visual and auditory hallucinations. The patient has been keeping his room closed, insisting having his courting close suggesting that patient may be also be paranoid. The patient denies previous psychiatric hospitalizations, he denies suicidal attempts, he denies being in psychotropics. He denies the use of illegal drugs or alcohol. Patient seems to be acutely manic/delusional. I will go ahead and [place] act him. He would be admitted in psychiatry for stabilization and safety. We will start Seroquel 50 mg twice daily for mood stabilization. Collateral information is crucial to investigate if patient has a previous psychiatric history. Transfer to psychiatry was medically appropriate. Justification for Continued Inpatient Stay: To be admitted in psychiatry Request Healthcare Surrogate/Guardian Advocate?: No
--- NOTE | 2018-02-24 12:26 | P.CONPSY ---
Provisional Diagnosis Admission Date: February 22, 2018 17:05 [place] I.: Unspecified psychosis History of Present Illness Service: Psychiatry Consult date: 02/24/18 Reason for Consult: Second opinion Primary Care Provider: UNKNOWN Family Provider: No Primary Care Physician History of Present Illness: Patient seen for second opinion. Patient was found sitting on hospital bed, noted with pressured speech, states that a black man had spoked to him about mental health. He reports being homeless, denies mental health services, denies any disturbance with sleep, energy or concentration, denying any perceptual disturbances or delusions. Noted to be disorganized during interview , likely minimizing psychiatric history. Review of Systems All other systems reviewed negative except as stated in HPI PMFSH - History History Provided By: Patient - Medical History Medical History: Medical History (Last Reviewed 02/19/18 @ 09:03 by Grisel Guerra MD) Asthma COPD (chronic obstructive pulmonary disease) Recent heart attack - Surgical History Surgical History: Surgical History (Last Reviewed 02/19/18 @ 09:03 by Grisel Guerra MD) Stented coronary artery - Family History Family History: Family History (Last Updated 02/19/18 @ 09:03 by Grisel Guerra MD) Other No pertinent family history - Tobacco History Second Hand Smoke Exposure: No Tobacco Use In Past 30 Days: No Smoking Status: Former smoker Tobacco Type: Cigarettes Packs Per Day: 1 - Alcohol History How Often Do You Have a Drink Containing Alcohol: Never - Substance Use History Substance History: Past History - Substance Use Type Marijuana Status: Early Remission Route Used: Inhalation Reason for Use: Calm Down, Get High Comment: Patient reports past substance abuse, illicit drugs and alcohol, however patient was unwilling to specifiy types of drugs used, when, etc., patient stating that it was "not important" because he no longer uses drugs or alcohol. - Travel History History of Recent Travel: Yes (travels from [place] to [facility]) Medications and Allergies Active Medications: Active Medications Acetaminophen (Tylenol) 650 mg PO Q4H PRN PRN Reason: Pain 1-5 or Temp >101F Al Hydrox/Mg Hydrox/Simethicone (Mag-Al Plus Susp Liq) 30 ml PO Q6H PRN PRN Reason: DYSPEPSIA Al Hydroxide/Mg Hydroxide (Milk Of Magnesia Liq) 30 ml PO Q12H PRN PRN Reason: Mild Constipation Albuterol (Duoneb Neb (Prn)) 1 ampul NEB Q2HR NEB PRN PRN Reason: SOB/WHEEZING Last Admin: 02/22/18 22:09 Dose: 1 ampul Bisacodyl (Dulcolax Supp) 10 mg RECTAL DAILY PRN PRN Reason: SEVERE CONSITIPATION Budesonide/Formoterol Fumarate (Symbicort 160/4.5 Mcg Inh) 2 puff INH BID [facility] Last Admin: 02/23/18 23:40 Dose: 2 puff Diphenhydramine HCl (Benadryl) 50 mg PO HS PRN PRN Reason: INSOMNIA Last Admin: 02/23/18 21:19 Dose: 50 mg Doxycycline Hyclate (Vibramycin) 100 mg PO Q12HR [facility] Last Admin: 02/23/18 21:50 Dose: 100 mg Ferrous Sulfate (Ferosul) 325 mg PO BID@1200,1700 [facility] Last Admin: 02/23/18 21:21 Dose: 325 mg Hydroxyzine HCl (Atarax) 50 mg PO Q6H PRN PRN Reason: ANXIETY Lactulose (Lactulose Liq) 30 ml PO DAILY PRN PRN Reason: SEVERE CONSITIPATION Pantoprazole Sodium (Protonix) 40 mg PO BID [facility] Last Admin: 02/23/18 21:19 Dose: 40 mg Prednisone (Deltasone) 20 mg PO DAILY [facility] Quetiapine Fumarate (Seroquel) 50 mg PO BID [facility] Last Admin: 02/23/18 21:18 Dose: Not Given Senna/Docusate Sodium (Eugenie-Colace) 1 tab PO BID [facility] Last Admin: 02/24/18 03:32 Dose: 1 tab Sennosides (Senokot) 17.2 mg PO Q12H PRN PRN Reason: Moderate Constipation Allergies Allergy/AdvReac Type Severity Reaction Status Date / Time penicillin G Allergy Intermediate Rash Verified 02/19/18 03:40 Exam Vital signs: Vital Signs 02/23/18 17:42 02/24/18 06:00 Temperature 97.2 F L 98.3 F Pulse Rate 74 81 Respiratory Rate 18 18 Blood Pressure 146/67 H 118/69 Pulse Oximetry 97 97 Narrative: Not noted to be in acute distress, no gross motor abnormalities, no signs of tremor or EPS - Constitutional no acute distress Mental Status Examination Appearance: Disheveled Consciousness: Alert Orientation: Person, Place, Date/Time Motor Activity: Normal gait Speech: Pressured, Rapid Language: Adequate Fund of Knowledge: Inadequate Attention and Concentration: Easily distracted Memory: Impaired Mood: Anxious, Irritable, Manic Affect: Other (Increased range and intensity) Thought Process & Associations: Disorganized Thought Content: Ideas of reference Hallucination Type: None Delusion Type: Paranoid Suicidal Ideation: No Suicidal Plan: No Suicidal Intention: No Homicidal Ideation: No Homicidal Plan: No Homicidal Intention: No Insight: Poor Judgment: Poor Assessment and Plan - Assessment (1) Brief psychotic disorder Code(s): F23 - Brief psychotic disorder Status: Acute (2) Unspecified psychosis Code(s): F29 - Unspecified psychosis not due to a substance or known physiological condition Status: Acute - Plan Plan: I have seen and examined the patient, reviewed the documentation, and I agree and concur with Dr. Blas assessment and plan. Justification for Continued Inpatient Stay: At risk for further decompensation at lower level of care. Request Healthcare Surrogate/Guardian Advocate?: No
[2018-02-24] MEDS: predniSONE 20 MG Tablet PO SCH (12:48)
[2018-02-24] MEDS: Budesonide-Formoterol 160/4.5 MCG 6 GM Inhaler INH SCH ×2 (12:49→20:48)
[2018-02-24] MEDS: Ferrous Sulfate 325 MG Tablet PO SCH ×2 (12:54→17:20)
[2018-02-24] MEDS: QUEtiapine 25 MG Tablet PO SCH (13:06)
--- NOTE | 2018-02-24 15:48 | P.PNPSY ---
Subjective Remarks: Patient seen in his room with nurse Nisa, chart reviewed, patient calm cooperative though still disorganized with some mild rapid pressured speech. He states he has done well in the past on Prolixin decanoate every 2-3 weeks up to 67.5 mg. He is willing to start that medication. I will discontinue the Seroquel we will offer Prolixin orally 5 mg twice daily over the weekend if he tolerates that well will offer the Prolixin Decanoate Review of Systems All other systems reviewed negative except as stated in HPI Mental Status Examination Appearance: Disheveled Consciousness: Alert Orientation: Person, Place, Date/Time Motor Activity: Normal gait Speech: Pressured, Rapid Language: Adequate Fund of Knowledge: Inadequate Attention and Concentration: Easily distracted Memory: Impaired Mood: Anxious, Irritable, Manic Affect: Other (Increased range and intensity) Thought Process & Associations: Disorganized Thought Content: Ideas of reference Hallucination Type: None Delusion Type: Paranoid Suicidal Ideation: No Suicidal Plan: No Suicidal Intention: No Homicidal Ideation: No Homicidal Plan: No Homicidal Intention: No Insight: Poor Judgment: Poor Assessment and Plan - Assessment (1) Brief psychotic disorder Code(s): F23 - Brief psychotic disorder Status: Acute (2) Unspecified psychosis Code(s): F29 - Unspecified psychosis not due to a substance or known physiological condition Status: Acute - Plan Plan: Patient remained psychotic somewhat disorganized little calmer more focused than yesterday. We did discuss medications we will start Prolixin 5 mg twice daily discontinue the Seroquel Justification for Continued Inpatient Stay: At this time patient would decompensate a place to a lower level of care Discharge Planning: To be determined Request Healthcare Surrogate/Guardian Advocate?: No
[2018-02-25] MEDS: Senna/Docusate Sodium 8.6/50 MG Tablet PO SCH ×2 (09:02→20:36)
[2018-02-25] MEDS: Budesonide-Formoterol 160/4.5 MCG 6 GM Inhaler INH SCH ×2 (09:02→20:36)
[2018-02-25] MEDS: predniSONE 20 MG Tablet PO SCH (09:02)
[2018-02-25] MEDS: Ferrous Sulfate 325 MG Tablet PO SCH ×2 (12:46→16:31)
--- NOTE | 2018-02-25 15:51 | P.PNPSY ---
Subjective Remarks: Reviewed electronic medical records and discussed case with staff. Follow-up was conducted in the patient's room with VILLA Quigley present. Patient was found lying on his bed. When asked how he is doing he states he is "hanging in there ". Reports he sleeping and eating well. When asked why he refused his medication this morning he states "it is poison". I once again explained to him that if he took the medication over the weekend he could have the IM injection on Tuesday very possibly be discharged. At this time, he is agreeing to take his medication later today. Mental Status Examination Appearance: Disheveled Consciousness: Alert Orientation: Person, Place, Date/Time Motor Activity: Normal gait Speech: Pressured, Rapid Language: Adequate Fund of Knowledge: Inadequate Attention and Concentration: Easily distracted Memory: Impaired Mood: Anxious, Irritable, Manic Affect: Other (Increased range and intensity) Thought Process & Associations: Disorganized Thought Content: Ideas of reference Hallucination Type: None Delusion Type: Paranoid Suicidal Ideation: No Suicidal Plan: No Suicidal Intention: No Homicidal Ideation: No Homicidal Plan: No Homicidal Intention: No Insight: Poor Judgment: Poor Assessment and Plan - Assessment (1) Brief psychotic disorder Code(s): F23 - Brief psychotic disorder Status: Acute - Plan Plan: Patient will be reevaluated and they by the attending psychiatrist. Continue with current treatment plan. Justification for Continued Inpatient Stay: Moving this patient to a less restrictive environment would likely result in decompensation. Request Healthcare Surrogate/Guardian Advocate?: No
[2018-02-26] MEDS: Budesonide-Formoterol 160/4.5 MCG 6 GM Inhaler INH SCH ×2 (08:45→20:17)
[2018-02-26] MEDS: Senna/Docusate Sodium 8.6/50 MG Tablet PO SCH ×2 (08:45→20:17)
[2018-02-26] MEDS: predniSONE 20 MG Tablet PO SCH (08:45)
[2018-02-26] MEDS: Ferrous Sulfate 325 MG Tablet PO SCH ×2 (11:33→16:46)
--- NOTE | 2018-02-26 14:50 | P.PNPSY ---
Subjective Remarks: Reviewed electronic medical records and discussed case with staff. Follow-up was conducted in the [facility] area with VILLA Dasilva present. Patient is quiet, withdrawn and seclusive. He states that he is homeless and looking for a place to stay. I gave him a list of shelters in the local area. He states that the plan is to discharge him on Tuesday. Review of Systems All other systems reviewed negative except as stated in HPI Mental Status Examination Appearance: Appropriate Consciousness: Alert Orientation: Person, Place, Date/Time Motor Activity: Normal gait Speech: Pressured, Rapid Language: Adequate Fund of Knowledge: Inadequate Attention and Concentration: Easily distracted Memory: Impaired Mood: Appropriate Affect: Other (Increased range and intensity) Thought Process & Associations: Disorganized Thought Content: Ideas of reference Hallucination Type: None Delusion Type: Paranoid Suicidal Ideation: No Suicidal Plan: No Suicidal Intention: No Homicidal Ideation: No Homicidal Plan: No Homicidal Intention: No Insight: Fair Judgment: Impulsive Assessment and Plan - Assessment (1) Unspecified psychosis Code(s): F29 - Unspecified psychosis not due to a substance or known physiological condition Status: Acute - Plan Plan: Continue current treatment plan. Psychiatrist will see him on Tuesday. Justification for Continued Inpatient Stay: Moving patient to a less restrictive environment may result in his decompensation. Request Healthcare Surrogate/Guardian Advocate?: No
[2018-02-27] MEDS: Budesonide-Formoterol 160/4.5 MCG 6 GM Inhaler INH SCH ×3 (08:49→20:36)
[2018-02-27] MEDS: predniSONE 20 MG Tablet PO SCH ×2 (08:49→12:35)
[2018-02-27] MEDS: Senna/Docusate Sodium 8.6/50 MG Tablet PO SCH ×3 (08:49→20:36)
--- NOTE | 2018-02-27 08:54 | P.TTN ---
- Patient Problems Problems: 1. Discharge planning 2. Medication compliance 3. Knowledge deficit 4. Lack of coping skills - Progress Toward Goals Provider Present: Dr. Zurdo Culver (Dr. Culver is titrating medications, potential discharge on Thursday, March 01, 2018, patient remains for further stabilization.) Psychiatric Counselors Present: Dimas Sharpe Jr., [facility] (Counselor Dimas has offered placement options including assisted living facilities and shelters throughout [facility], patient has refused stating he prefers to be homeless. Patient reports he receives his disability check on Thursday, March 01, 2018 and intends to travel to [facility] on his own, refusing any assistance) Group Spec/RT/OT/CARTER Present: [facility] [employer] (Patient attends select groups ) - Documentation Teaching Recipient: George
--- NOTE | 2018-02-27 15:29 | P.PNPSY ---
Subjective Remarks: Patient seen in his room with nurse Vika and medical student Rachana, patient alert oriented, his rapid pressured speech is slowing down his affect is showing a decreased range and intensity becoming more appropriate and focused. He denies suicidality homicidality. He says the voices are markedly decreased and not interested at this time. For now continue treatment Review of Systems All other systems reviewed negative except as stated in HPI Mental Status Examination Appearance: Appropriate Consciousness: Alert Orientation: Person, Place, Date/Time Motor Activity: Normal gait Speech: Pressured, Rapid Language: Adequate Fund of Knowledge: Inadequate Attention and Concentration: Easily distracted Memory: Impaired Mood: Appropriate Affect: Other (Increased range and intensity) Thought Process & Associations: Disorganized Thought Content: Ideas of reference Hallucination Type: None Delusion Type: Paranoid Suicidal Ideation: No Suicidal Plan: No Suicidal Intention: No Homicidal Ideation: No Homicidal Plan: No Homicidal Intention: No Insight: Fair Judgment: Impulsive Assessment and Plan - Assessment (1) Brief psychotic disorder Code(s): F23 - Brief psychotic disorder Status: Acute (2) Unspecified psychosis Code(s): F29 - Unspecified psychosis not due to a substance or known physiological condition Status: Acute - Plan Plan: Patient's psychosis and affect are slowly softening, patient compliant medication. For now continue treatment Justification for Continued Inpatient Stay: At this time patient would decompensate a place to a lower level of care Discharge Planning: To be determined Request Healthcare Surrogate/Guardian Advocate?: No
[2018-02-27 16:09] VITALS: TEMP 98.1
[2018-02-28 06:30] VITALS: PULSE 80; RESP 17; O2SAT 97
[2018-02-28 06:31] VITALS: BP 134/97
[2018-02-28] MEDS: predniSONE 20 MG Tablet PO SCH (08:48)
[2018-02-28] MEDS: Budesonide-Formoterol 160/4.5 MCG 6 GM Inhaler INH SCH (08:48)
[2018-02-28] MEDS: Senna/Docusate Sodium 8.6/50 MG Tablet PO SCH (08:48)
--- NOTE | 2018-02-28 09:50 | P.DSPSY ---
Psychiatry Discharge Summary Inpatient Psychiatric care?: Yes Advance Directives: No Mental Health Advance Directive: No Health Care Proxy: No - Admission Admission Date: February 22, 2018 17:05 - Admission Diagnosis (1) Brief psychotic disorder Code(s): F23 - Brief psychotic disorder Brief History: Late entry. The patient was seen 02/22 2018 The patient is a 62-year-old man, homeless, unemployed, single, supported by [facility], he denies previous psychiatric history, denies previous suicide attempts, denies psychiatric hospitalizations, with medical history COPD , anemia, CM with hx of CAD s/p stent 2 months ago on Palvix, who was admitted through to the ED for shortness of breath x2 days. Patient reports that his SOB occurs with minimal exertion, incr. white sputum x7 days with cough. Patient is a poor historian, he is homeless and reports that be cannot afford inhalers for COPD. Patient also reports hx of anemia a few mths ago req. blood transfusion, at the time he was having bright red blood when he wiped after BM's and had an EGD/Colonoscopy that showed gastric polys that according to him were concerning for malignancy. The patient is now medically stable, he has been recommended to continue medical follow-up as an outpatient. He has been consulted to me due to disorganized and bizarre speech. Chart was reviewed. Case was widely discussed with primary medical team and nursing staff. On my psychiatric evaluation today I find a patient in his bed, when I enter in the room the patient was talking to himself, but in general he was initially calm and cooperative. The patient is very hyperverbal, and at times because of quite pleasure. He says that he has been cleaning his room over and over since yesterday because he is going to be discharge he does not want to leave his room dirty. Patient reports that last night he did not sleep, he says that he has a lot of energy he does not want to waste his time sleeping. He says that he has being living "the Bible scriptures and Gods wish", and he has been instructed "by the high-power" to be denies with people and to clean. At times the patient is a pressure that is difficult to follow and difficult to redirect. He reports happy mood, even though he is irritable, has a prominent expansive affect, labile at times, tangential, with pavan loosening of associations. The patient is fully oriented x3, no attention deficit, no filtration of consciousness at the moment. He denies suicidal and homicidal ideation, denies visual and auditory hallucinations. As per nurse in charge, the patient has been acting very bizarre, talking to himself, at times has being verbally aggressive with her, no making sense, "with a very rapid and disorganized language". Patient clarifies that he has never seen a psychiatrist , but he does not need to take psychiatric medications, he became very upset when I told him that I was considering a psychiatric hospitalization for him. PPHx: No psychiatric history, no previous suicidal attempts, no psychotropic medication PMHx: COPD, CAD, anemia Substance Hx: Patient denies history of alcohol and illegal drug use Family Hx: Denies family psychiatric history Social Hx: The patient was born and raised in [place], he is homeless in the [facility], unemployed, single, supported by [facility], his highest level of education is some college Tobacco Use In Past 30 Days: No How Often Do You Have a Drink Containing Alcohol: Never Hospital Course: Patient's hospital course was uneventful his initial rapid pressured speech delusions and mild grandiosity slowly resolved with compliance with medication. He remains somewhat isolative to his room. Though there is no behavioral problems noted. He acknowledged his homelessness his desire to remain on his own. He did not wish any type of placement to be made stated that has been homeless for over 30 years and that is what he wishes to do in the future. At this time patient is wishes to be discharged. At this time I feel his reached maximum benefit of this hospitalization thus patient be discharged today to himself with Rx times 1 month to follow-up through [facility] for medication management if he remains in this area - Discharge Discharge Date: 02/28/18 - Discharge Diagnosis (1) Brief psychotic disorder Code(s): F23 - Brief psychotic disorder Status: Acute Discharge Disposition: Home - Discharge Instructions Discharge Diet: Regular Diet Activities You Can Perform: Regular- No Restrictions - Discharge Time > 30 minutes Mental Status Examination Appearance: Appropriate Consciousness: Alert Orientation: Person, Place, Date/Time Motor Activity: Normal gait Speech: Pressured, Rapid Language: Adequate Fund of Knowledge: Inadequate Attention and Concentration: Easily distracted Memory: Impaired Mood: Appropriate Affect: Other (Increased range and intensity) Thought Process & Associations: Disorganized Thought Content: Ideas of reference Hallucination Type: None Delusion Type: Paranoid Suicidal Ideation: No Suicidal Plan: No Suicidal Intention: No Homicidal Ideation: No Homicidal Plan: No Homicidal Intention: No Insight: Fair Judgment: Impulsive Discharge/Advance Care Plan - Results Vital Signs: Last Vital Signs Temp 98.1 F 02/27/18 16:08 Pulse 80 02/28/18 06:00 Resp 17 02/28/18 06:00 BP 134/97 H 02/28/18 06:00 Pulse Ox 97 02/28/18 06:00 Lab Results: Laboratory Results Hemoglobin A1c 6.3 % (4.3-6.0) H 02/23/18 06:03 Triglycerides 74 mg/dL (42-150) 02/23/18 06:03 Cholesterol 170 mg/dL (120-200) 02/23/18 06:03 LDL Cholesterol, Calc 82 mg/dL (0-99) 02/23/18 06:03 HDL Cholesterol 73.5 mg/dL (40.0-60.0) H 02/23/18 06:03 Summary of Procedures: None done Pending Results: None - Medications Number of antipsychotic medications at discharge: 1 - Discharge Care Plan Goals to Promote Your Health: * To prevent worsening of your condition and complications * To maintain your health at the optimal level Directions to Meet Your Goals: Take your medications as prescribed Follow your dietary instruction Follow activity as directed Keep your appointments as scheduled Take your immunizations and boosters as scheduled If your symptoms worsen call your PCP, if no PCP go to Urgent Care Center or Emergency Room For 20/12 questions related to your inpatient stay or results of tests pending at discharge, please contact Dr. Simba Culver MD at Smoking is Dangerous to Your Health. Avoid second hand smoking
== END 2018-02-28 12:15 | disposition home or self-care (01) ==
LOC: H270 17:05
PROVIDERS: ADMIT Psychiatry & Neurology Psychiatry; ATTEND Psychiatry & Neurology Psychiatry
CPT/HCPCS: 80048; 80061; 83036; 94664; J7506; J7512; Q0163